=== PATIENT | female | born 1975 | race Caucasian/White ===

== ENCOUNTER 2018-02-09 11:45 | Observation (INO) ==
[2018-02-09] MEDS ORDERED: Aspirin 81 MG TAB.CHEW PO ONE (11:59)
--- NOTE | 2018-02-09 12:13 | Emergency Department Note ---
Disposition Clinical Impression: Chest pain Qualifiers: Chest pain type: precordial pain Qualified Code(s): R07.2 - Precordial pain Disposition: Admitted As Inpatient Condition: Good Time of Disposition: 14:11 General Adult HPI - General Stated complaint: Chest Pain Time Seen by Provider: 02/09/18 11:50 Source: patient, family Limitations: no limitations Nursing Notes Reviewed: Yes Vital Signs Reviewed: Yes - History of Present Illness HPI Narrative: Mrs. Keenan is a very pleasant's 42-year-old female with a past history of hypertension, hyperlipidemia, insulin-dependent diabetes, tobacco abuse and CAD who presents to the [facility] department with a chief complaint of sternal chest pain. She reports that she woke up this morning a proximal 4 AM complaining of nausea. She is as well as start experiencing sternal chest pain is nonradiating Anaprox was 6 AM. For his G decided to take a nitroglycerin that moderately improved her symptoms. She denies any emesis or radiation to her neck or left arm. She was on state that yesterday for approximately 2 hours she started experiencing profound diaphoresis at rest. Patient has significant cardiac history to include PCI back in 2011 resulting in one stent placed as well as 3 stents placed in 2017 for recurrent symptoms. She follows Dr. Gandhi here as an outpatient. Last known EF was back in 2017 of 55%. Today she reports the chest pain is similar to previous occurrences. On arrival she continues to complain of active chest pain without any shortness of breath, nausea, vomiting, diarrhea, diaphoresis palpitations or abdominal pain. No other complaints at this time. Pain Scale: 4 - Related Data Home Medications Medication Instructions Recorded Confirmed Atorvastatin [Lipitor] 40 mg PO HS 01/10/17 02/09/18 Carvedilol [Coreg] 25 mg PO BID 01/10/17 02/09/18 Clopidogrel [Plavix] 75 mg PO DAILY 01/10/17 02/09/18 Isosorbide MONOnitrate (24 HR) 120 mg PO DAILY 01/10/17 02/09/18 [Imdur] Nitroglycerin [Nitrostat] 0.4 mg SL Q5M PRN 01/10/17 02/09/18 glipiZIDE [Glipizide] 10 mg PO DAILY 01/10/17 02/09/18 Amitriptyline [Elavil] 25 mg PO HS 02/09/18 02/09/18 Citalopram [CeleXA] 20 mg PO DAILY 02/09/18 02/09/18 Furosemide [Lasix] 40 mg PO DAILY PRN 02/09/18 02/09/18 Insulin NPH Hum/Reg Insulin Hm 30 unit SQ BID 02/09/18 02/09/18 [Novolin 70-30 100 Unit/ml Vial] Lisinopril [Zestril] 10 mg PO DAILY 02/09/18 02/09/18 Allergies Allergy/AdvReac Type Severity Reaction Status Date / Time Sulfa (Sulfonamide Allergy Hives Verified 02/09/18 11:52 Antibiotics) Review of Systems: Constitutional: No fever Vision: No blurred vision ENT: No rhinorrhea Respiratory: No cough Allergic: No allergies : No blood in urine GI: No blood in stool Hematologic: No bruising Dermatologic: No skin rash Musculoskeletal: No pain in the extremities Neuro: No numbness of the extremities Past Medical History - Past Medical History Medical history: Reports: coronary artery disease, migraine, other Surgical history: Reports: non-contributory Psychiatric history: Reports: anxiety, depression 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 Oropharynx: pink/moist RESP: NRD without use of accessory musculature, CTA b/l with no wheezes/rales/ rhonchi CARD: Regular rhythm, without murmurs, rubs, or gallop CHEST: No reproducible chest wall tenderness ABD: grossly normal, soft, non-tender, no guarding/distention/rigidity SKIN: normal appearance, no pallor/diaphoresis,mottling,jaundice,cyanosis EXT: DP/Rad pulses 2+ and symmetrical; no lateralizing edema; no other lesions seen PSYCH: appropriate mood/affect - General Limitations: no limitations General appearance: alert, in no apparent distress Course Course Narrative: Patient was seen and examined at bedside. Vital signs reviewed and normal. Physical examination is otherwise benign at this time. We will begin workup for possible ACS with CBC, chemistries, troponin, BNP, 12-lead EKG, chest x-ray , coags. 325 aspirin was given as well as sublingual nitroglycerin as needed. Disposition pending at this time. 1258: Initial workup with CBC, chemistries, troponin and BNP were all within normal limits except for mild leukocytosis of 12. Chest x-ray shows no acute process. Patient has a heart score of 4 and given her significant cardiac history along with her presenting symptoms, I would recommend observation admission for further workup and management. Heparin drip was started. Patient has no signs of active bleeding at this time. Disposition was discussed with patient who understands and agrees to plan. 1338: Reexamination of patient demonstrates resolution of pain after 2 sublingual nitroglycerin. Patient was able to ambulate to the bathroom and back without any new chest pain, palpations, short of breath, diaphoresis, nausea, vomiting. Pending hospitalist call back for admission. 0400: Spoke with hospitalist, Dr. Loyola, who will accept patient for admission. No further recommendations per hospital team. Disposition was discussed with patient who understands and agrees to plan. Vital Signs Temperature 98.0 F 02/09/18 11:52 Pulse Rate 71 02/09/18 11:52 Respiratory Rate 16 02/09/18 11:52 Blood Pressure 139/91 02/09/18 11:52 O2 Sat by Pulse Oximetry 97 02/09/18 11:52 Temperature 98.0 F 02/09/18 11:52 Pulse Rate 64 02/09/18 14:39 Respiratory Rate 16 02/09/18 14:39 Blood Pressure 114/49 02/09/18 14:39 O2 Sat by Pulse Oximetry 95 02/09/18 14:39 Oxygen Delivery Oxygen Delivery Room Air Medical Decision Making - Medical Records Medical records reviewed: Yes I reviewed the patient's medical records. - Lab Data Result diagrams: 02/09/18 12:09 02/09/18 12:09 Lab Results 02/09/18 02/09/18 02/09/18 Range/Units 11:59 11:59 12:09 WBC 12.5 H (4.3-11.1) K/mcL RBC 6.02 H (3.82-4.97) M/mcL Hgb 16.7 H (11.5-15.4) g/dL Hct 49.6 H (35.3-44.9) % MCV 82.4 L (83.0-100.0) fL MCH 27.7 L (28.0-33.3) pg MCHC 33.7 (31.6-35.5) g/dL RDW 13.7 (11.5-14.5) % Plt Count 288 (140-400) K/mcL MPV 10.1 (9.4-12.4) fL Immature Gran % 0.7 (0-4) % Seg Neutrophils % 60.4 % Lymphocytes % 29.1 % Monocytes % 7.6 % Eosinophils % 1.7 % Basophils % 0.5 % Neutrophils # 7.6 (1.6-8.9) K/mcL Lymphocytes # 3.6 (0.6-4.6) K/mcL Monocytes # 1.0 (0.0-1.3) K/mcL Eosinophils # 0.2 (0.0-0.6) K/mcL Basophils # 0.1 (0.0-0.2) K/mcL Immature Plt Fraction 2.3 (1.1-6.1) % PT 10.7 (9.4-12.1) Seconds INR 1.0 APTT 31.2 (26.0-36.0) Seconds Sodium (136-145) mEq/L Potassium (3.5-5.1) mEq/L Chloride (98-107) mEq/L Carbon Dioxide (23-29) mEq/L BUN (6-20) mg/dL Creatinine (0.60-1.20) mg/dL Est GFR ( Amer) (> 60) Est GFR (Non-Af Amer) (> 60) BUN/Creatinine Ratio (6-26) Glucose (70-105) mg/dL Calculated Osmolality (280-300) Calcium (8.6-10.3) mg/dL Troponin I (< 0.04) ng/mL B-Natriuretic Peptide 55 (Less than 100) pg/mL 02/09/18 Range/Units 12:09 WBC (4.3-11.1) K/mcL RBC (3.82-4.97) M/mcL Hgb (11.5-15.4) g/dL Hct (35.3-44.9) % MCV (83.0-100.0) fL MCH (28.0-33.3) pg MCHC (31.6-35.5) g/dL RDW (11.5-14.5) % Plt Count (140-400) K/mcL MPV (9.4-12.4) fL Immature Gran % (0-4) % Seg Neutrophils % % Lymphocytes % % Monocytes % % Eosinophils % % Basophils % % Neutrophils # (1.6-8.9) K/mcL Lymphocytes # (0.6-4.6) K/mcL Monocytes # (0.0-1.3) K/mcL Eosinophils # (0.0-0.6) K/mcL Basophils # (0.0-0.2) K/mcL Immature Plt Fraction (1.1-6.1) % PT (9.4-12.1) Seconds INR APTT (26.0-36.0) Seconds Sodium 135 L (136-145) mEq/L Potassium 4.2 (3.5-5.1) mEq/L Chloride 104 (98-107) mEq/L Carbon Dioxide 24 (23-29) mEq/L BUN 11 (6-20) mg/dL Creatinine 0.63 (0.60-1.20) mg/dL Est GFR ( Amer) > 60 (> 60) Est GFR (Non-Af Amer) > 60 (> 60) BUN/Creatinine Ratio 17 (6-26) Glucose 242 H (70-105) mg/dL Calculated Osmolality 287 (280-300) Calcium 9.7 (8.6-10.3) mg/dL Troponin I < 0.03 (< 0.04) ng/mL B-Natriuretic Peptide (Less than 100) pg/mL - EKG Data EKG #1 EKG results narrative: 02/09/18 1154: Heart rate 70, P-R 117, QRS 110, QTC 413. Rhythm consistent with normal sinus rhythm without any new ST elevation or any other ischemic changes. EKG was compared to previous that was performed on 04/27/17. Attestation Statement - Attestation Attestation: I, Shyam Cordero DO, examined this patient [id number] and my medical decision-making was reviewed with Ankur Bassett PGY-1, Resident Physician. I agree with the documented findings, disposition and treatment plan as described except to the extent set forth below. Please see my progress notes for details.
[2018-02-09 12:14] LABS: Basophils # 0.1 K/mcL (0.0-0.2); Basophils % 0.5 %; Eosinophils # 0.2 K/mcL (0.0-0.6); Eosinophils % 1.7 %; Hematocrit 49.6 % (35.3-44.9); Hemoglobin 16.7 g/dL (11.5-15.4); Immature Granulocytes % 0.7 % (0-4); Immature Platelets 2.3 % (1.1-6.1); Lymphocytes # 3.6 K/mcL (0.6-4.6); Lymphocytes % 29.1 %; Mean Corpuscular HGB Conc 33.7 g/dL (31.6-35.5); Mean Corpuscular Hemoglobin 27.7 pg (28.0-33.3); Mean Corpuscular Volume 82.4 fL (83.0-100.0); Mean Platelet Volume 10.1 fL (9.4-12.4); Monocytes % 7.6 %; Neutrophils # 7.6 K/mcL (1.6-8.9); Platelet Count 288 K/mcL (140-400); Red Blood Count 6.02 M/mcL (3.82-4.97); Red Cell Distribution Width 13.7 % (11.5-14.5); Segmented Neutrophils % 60.4 %
[2018-02-09 12:16] LABS: Prothrombin Time 10.7 Seconds (9.4-12.1)
[2018-02-09 12:18] LABS: Activated Partial Thrombo Time 31.2 Seconds (26.0-36.0)
[2018-02-09 12:26] LABS: Troponin I < 0.03 ng/mL (< 0.04)
[2018-02-09 12:34] LABS: BUN/Creatinine Ratio 17 (6-26); Blood Urea Nitrogen 11 mg/dL (6-20); Calcium 9.7 mg/dL (8.6-10.3); Carbon Dioxide 24 mEq/L (23-29); Chloride 104 mEq/L (98-107); Glucose 242 mg/dL (70-105); Osmolality,Calculated 287 (280-300); Potassium 4.2 mEq/L (3.5-5.1); Sodium 135 mEq/L (136-145); eGFR For African Americans > 60 (> 60); eGFR For Non-African Americans > 60 (> 60)
[2018-02-09] MEDS: Nitroglycerin 0.4 MG TAB.SUBL SL PRN ×2 (12:50→12:56)
[2018-02-09] MEDS ORDERED: *HR* Heparin 5,000 UNIT/ML VIAL IVP PRN ×2 (12:52)
[2018-02-09] MEDS ORDERED: *HR* Heparin 5,000 UNIT/ML VIAL IVP ONE (12:52)
[2018-02-09] MEDS ORDERED: Heparin 25,000 UNIT/500 ML D5W 25,000 UNIT/500 ML BAG IVC SCH (13:00)
--- NOTE | 2018-02-09 13:35 | Emergency Department Note ---
Disposition Clinical Impression: Chest pain Disposition: Admitted As Inpatient Condition: Good Time of Disposition: 14:52 General Adult HPI - General Chief complaint: ED Chest Pain Stated complaint: Chest Pain Time Seen by Provider: 02/09/18 11:50 Source: patient, family Limitations: no limitations - History of Present Illness Pain Scale: 4 - Related Data Home Medications Medication Instructions Recorded Confirmed Atorvastatin [Lipitor] 40 mg PO HS 01/10/17 01/10/17 Carvedilol [Coreg] 25 mg PO BID 01/10/17 01/10/17 Clopidogrel [Plavix] 75 mg PO DAILY 01/10/17 01/10/17 Isosorbide MONOnitrate (24 HR) 120 mg PO DAILY 01/10/17 01/10/17 [Imdur] Nitroglycerin [Nitrostat] 0.4 mg SL Q5M PRN 01/10/17 01/10/17 glipiZIDE [Glipizide] 10 mg PO DAILY 01/10/17 01/10/17 Amitriptyline [Elavil] 25 mg PO HS 02/09/18 02/09/18 Citalopram [CeleXA] 20 mg PO DAILY 02/09/18 02/09/18 Furosemide [Lasix] 40 mg PO DAILY PRN 02/09/18 02/09/18 Insulin NPH Hum/Reg Insulin Hm 30 unit SQ BID 02/09/18 02/09/18 [Novolin 70-30 100 Unit/ml Vial] Lisinopril [Zestril] 10 mg PO DAILY 02/09/18 02/09/18 Allergies Allergy/AdvReac Type Severity Reaction Status Date / Time Sulfa (Sulfonamide Allergy Hives Verified 02/09/18 11:52 Antibiotics) Past Medical History - Past Medical History Medical history: Reports: coronary artery disease, migraine, other Surgical history: Reports: non-contributory Psychiatric history: Reports: anxiety, depression 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: polycystic ovary syndrome - Social History Smoking Status: Current some day smoker Smokeless Tobacco Status: No Alcohol use: Reports: none Drug use: Reports: none Physical Exam - General Limitations: no limitations General appearance: alert, in no apparent distress Course Vital Signs Temperature 98.0 F 02/09/18 11:52 Pulse Rate 71 02/09/18 11:52 Respiratory Rate 16 02/09/18 11:52 Blood Pressure 139/91 02/09/18 11:52 O2 Sat by Pulse Oximetry 97 02/09/18 11:52 Temperature 98.0 F 02/09/18 11:52 Pulse Rate 64 02/09/18 14:39 Respiratory Rate 16 02/09/18 14:39 Blood Pressure 114/49 02/09/18 14:39 O2 Sat by Pulse Oximetry 95 02/09/18 14:39 Oxygen Delivery Oxygen Delivery Room Air Medical Decision Making - Lab Data Result diagrams: 02/09/18 12:09 02/09/18 12:09 Lab Results 02/09/18 02/09/18 02/09/18 Range/Units 11:59 11:59 12:09 WBC 12.5 H (4.3-11.1) K/mcL RBC 6.02 H (3.82-4.97) M/mcL Hgb 16.7 H (11.5-15.4) g/dL Hct 49.6 H (35.3-44.9) % MCV 82.4 L (83.0-100.0) fL MCH 27.7 L (28.0-33.3) pg MCHC 33.7 (31.6-35.5) g/dL RDW 13.7 (11.5-14.5) % Plt Count 288 (140-400) K/mcL MPV 10.1 (9.4-12.4) fL Immature Gran % 0.7 (0-4) % Seg Neutrophils % 60.4 % Lymphocytes % 29.1 % Monocytes % 7.6 % Eosinophils % 1.7 % Basophils % 0.5 % Neutrophils # 7.6 (1.6-8.9) K/mcL Lymphocytes # 3.6 (0.6-4.6) K/mcL Monocytes # 1.0 (0.0-1.3) K/mcL Eosinophils # 0.2 (0.0-0.6) K/mcL Basophils # 0.1 (0.0-0.2) K/mcL Immature Plt Fraction 2.3 (1.1-6.1) % PT 10.7 (9.4-12.1) Seconds INR 1.0 APTT 31.2 (26.0-36.0) Seconds Sodium (136-145) mEq/L Potassium (3.5-5.1) mEq/L Chloride (98-107) mEq/L Carbon Dioxide (23-29) mEq/L BUN (6-20) mg/dL Creatinine (0.60-1.20) mg/dL Est GFR ( Amer) (> 60) Est GFR (Non-Af Amer) (> 60) BUN/Creatinine Ratio (6-26) Glucose (70-105) mg/dL Calculated Osmolality (280-300) Calcium (8.6-10.3) mg/dL Troponin I (< 0.04) ng/mL B-Natriuretic Peptide 55 (Less than 100) pg/mL 02/09/18 Range/Units 12:09 WBC (4.3-11.1) K/mcL RBC (3.82-4.97) M/mcL Hgb (11.5-15.4) g/dL Hct (35.3-44.9) % MCV (83.0-100.0) fL MCH (28.0-33.3) pg MCHC (31.6-35.5) g/dL RDW (11.5-14.5) % Plt Count (140-400) K/mcL MPV (9.4-12.4) fL Immature Gran % (0-4) % Seg Neutrophils % % Lymphocytes % % Monocytes % % Eosinophils % % Basophils % % Neutrophils # (1.6-8.9) K/mcL Lymphocytes # (0.6-4.6) K/mcL Monocytes # (0.0-1.3) K/mcL Eosinophils # (0.0-0.6) K/mcL Basophils # (0.0-0.2) K/mcL Immature Plt Fraction (1.1-6.1) % PT (9.4-12.1) Seconds INR APTT (26.0-36.0) Seconds Sodium 135 L (136-145) mEq/L Potassium 4.2 (3.5-5.1) mEq/L Chloride 104 (98-107) mEq/L Carbon Dioxide 24 (23-29) mEq/L BUN 11 (6-20) mg/dL Creatinine 0.63 (0.60-1.20) mg/dL Est GFR ( Amer) > 60 (> 60) Est GFR (Non-Af Amer) > 60 (> 60) BUN/Creatinine Ratio 17 (6-26) Glucose 242 H (70-105) mg/dL Calculated Osmolality 287 (280-300) Calcium 9.7 (8.6-10.3) mg/dL Troponin I < 0.03 (< 0.04) ng/mL B-Natriuretic Peptide (Less than 100) pg/mL Critical Care Time Critical Care Time: Yes Total Critical Care Time: 35 Attestation: Critical care performed: Time is exclusive of separately billable procedures. Time includes: direct patient care, patient reassessment, coordination of patient care, interpretation of data (laboratory data, radiology data, and respiratory data), review of patient's medical records, medical consultation and documentation of patient care. Procedures included in critical care time: Procedures excluded from critical care time: Attestation Statement - Attestation Attestation: I, Shyam Cordero DO, examined this patient [id number] and my medical decision-making was reviewed withTeetee Bassett PGY-1 Resident Physician. I agree with the documented findings, disposition and treatment plan as described except to the extent set forth below. Please see my progress notes for details. 42-year-old female presents to the emergency room with several different complaints. Yesterday afternoon she had some sweating and diaphoresis while at [employer]. She went home without any problem but then started has some nausea vomiting that woke her from sleep at night. When she woke up this morning with chest tightness and pressure. Patient does have a history of stenting vascular related issues that required catheterization [facility] a [facility]. Patient has not had any new medications or symptoms provided. She is on isosorbide at home. She did take one nitroglycerin at home that pain did almost complete resolved. Patient is otherwise comfortable this point she understands this is most likely acute coronary syndrome considering the symptoms are identical to when she had her heart related issues just over 2 years ago. Patient is clinically stable at this point. She denies any hematochezia or melena. Denies any vaginal bleeding. Denies any hemoptysis. She has a normal hemoglobin CBC as well as chemistry correlation studies and urinalysis. She does not have any other complaints at this point. Patient will most likely be admitted to the hospital for unstable angina considering she does have symptoms and is comfortable resting. Patient does have concerning history warranting further workup and management. See detailed documentation of the physical exam , medical intervention, medical decision-making and disposition in the resident physician's note. Heparin drip will be started if appropriate. 35 minutes of critical care provider this patient's treatment course at this time. 1400 Patient has had complete resolution of her chest tightness and pain at this time. She ambulated to the bathroom without any difficulty. Patient had no repeat or reemergence of the symptoms. Heparin drip was ordered here. Patient is otherwise currently stable. She denies any bleeding or issue at this point. Patient will be admitted for acute coronary syndrome rule out
[2018-02-09] MEDS ORDERED: Furosemide 40 MG TABLET PO PRN (15:14)
[2018-02-09] MEDS ORDERED: Nitroglycerin 0.4 MG TAB.SUBL SL PRN (15:14)
[2018-02-09] MEDS ORDERED: Naloxone 0.4 MG/ML INJ IVP PRN (15:16)
--- NOTE | 2018-02-09 15:25 | Internal Med History&Physical ---
Date of Encounter: 02/09/18 Time of Encounter: 15:20 Internal Medicine - H&P: HPI Chief complaint: chest pain Admitted From: Emergency Dept Plans for Post Hospital Care: Home History of present illness: Ms. Keenan is a 42 year old female who is a background history of diabetes, hypertension, dyslipidemia, severe coronary artery disease,. Patient came to emergency room for persistent nonradiating and localized precordial left-sided chest pain. Patient claims that the chest pain is pretty severe and this is exactly mimicking when she had a NE 3 years back. Patient has ongoing chest pain in the emergency room till she was started on intravenous medication. Patient claims that since he is on the floor she is chest pain-free. Patient denies shortness of breath, nausea, vomiting, dizziness, diarrhea Workup in the emergency room: Patient was evaluated in the emergency room. Basic labs were drawn. First troponin negative. Patient was started on heparin. Reason for admission: Heart score 5, patient is on intravenous heparin and needs to be observed in the hospital. Evaluation by cardiology for possible further intervention. Family history: Noncontributory Past Med Surg Social Fam HX - Past Medical History Medical history: coronary artery disease, migraine, other Psychiatric history: anxiety, depression - Past Surgical History Surgical History: non-contributory - Social History Smoking Status: Current some day smoker Smokeless Tobacco Status: No Alcohol use: none Drug use: none Internal Medicine - H&P: Meds Atorvastatin [Lipitor] 40 mg PO HS 01/10/17 [History] Carvedilol [Coreg] 25 mg PO BID 01/10/17 [History] Clopidogrel [Plavix] 75 mg PO DAILY 01/10/17 [History] Isosorbide MONOnitrate (24 HR) [Imdur] 120 mg PO DAILY 01/10/17 [History] Nitroglycerin [Nitrostat] 0.4 mg SL Q5M PRN 01/10/17 [History] glipiZIDE [Glipizide] 10 mg PO DAILY 01/10/17 [History] Amitriptyline [Elavil] 25 mg PO HS 02/09/18 [History] Citalopram [CeleXA] 20 mg PO DAILY 02/09/18 [History] Furosemide [Lasix] 40 mg PO DAILY PRN 02/09/18 [History] Insulin NPH Hum/Reg Insulin Hm [Novolin 70-30 100 Unit/ml Vial] 30 unit SQ BID 02/09/18 [History] Lisinopril [Zestril] 10 mg PO DAILY 02/09/18 [History] 3 Allergy/AdvReac Type Severity Reaction Status Date / Time Sulfa (Sulfonamide Allergy Hives Verified 02/09/18 11:52 Antibiotics) All Systems PM: A 10-system review of systems was performed and is negative for pertinent findings except as documented above in the HPI. - Constitutional Constitutional: no chills, no fever(s), no night sweats - EENT Eyes: no change in vision, no discharge, no pain, no photophobia Ears: no ear discharge, no ear pain, no tinnitus Nose, mouth and throat: no dysphagia, no nasal discharge, no neck pain, no sore throat - Cardiovascular Cardiovascular ROS IM: chest pain, no diaphoresis, no dyspnea, no lightheadedness, no palpitations, no syncope - Respiratory Respiratory: no cough, no dyspnea, no wheezing, no excessive phlegm production - Gastrointestinal Gastrointestinal: no abdominal pain, no diarrhea, no hematemesis, no hematochezia, no melena, no nausea, no vomiting - Genitourinary Genitourinary: no change in urinary stream, no dysuria, no flank pain, no hematuria - Musculoskeletal Musculoskeletal ROS IM: no numbness, no tingling - Integumentary Integumentary IM: no rash, no unusual bruising - Neurological Neurological ROS: no confusion, no convulsions, no focal weakness, no numbness, no tingling, no tremor(s) - Hematologic/Lymphatic Hematologic/Lymphatic: no easy bruising - Constitutional Vitals: Temp Pulse Resp BP Pulse Ox 98.0 F 64 16 114/49 95 02/09/18 11:52 02/09/18 14:39 02/09/18 14:39 02/09/18 14:39 02/09/18 14:39 General appearance: Present: A&O X 3, pleasant, no acute distress, answers questions appropriately - Head Head exam: Present: atraumatic, normocephalic - Eye Eye exam: Present: PERRL, conjuntiva pink, sclera anicteric Pupils: Present: PERRL - Neck Neck exam general surgery: Present: supple, trachea midline. Absent: lymphadenopathy - Respiratory Respiratory exam: Present: CTAB. Absent: accessory muscle use, rales, rhonchi, wheezes - Cardiovascular Cardiovascular exam: Present: RRR, +S1, +S2. Absent: diastolic murmur, gallop, rubs, systolic murmur - GI/Abdominal GI/Abdominal exam: Present: normal bowel sounds, soft, no peritoneal signs. Absent: distended, tenderness - Extremities Exam Extremities exam: Present: warm, radial pulses palpable and symmetrical. Absent : calf tenderness, cyanotic, pedal edema - Neurological Exam Neurological exam: Present: CN II-XII intact, oriented X3, no focal deficits. Absent: pronater drift, facial droop, speech deficit - Skin Skin exam: Present: dry, intact Internal Med - H&P Results - Labs CBC & Chem 7: 02/09/18 12:09 02/09/18 12:09 - Assessment and plan (1) Chest pain Current Visit: Yes Status: Acute Assessment and plan: 43/mL Severe significant coronary artery disease. Admitted with chest pain. CARLOS A:4 Plan: Admit as observation. Cardiac/diabetic diet. On heparin drip. Cycle troponin. Basic labs tomorrow. ASA/statin/beta blockers/lisinopril/ISDN SL Nitro At this point we will not consider any imaging tests. I examined this patient in 3B63 along with ALAN Robert. Plan of care discussed with the patient. Patient verbalized understanding. Qualifiers: Chest pain type: precordial pain Qualified Code(s): R07.2 - Precordial pain (2) Coronary artery disease Current Visit: Yes Status: Acute Assessment and plan: Patient has significant coronary artery disease. EKG: Nonspecific ST-T changes. Echocardiogram: 06/2017: EF: 60-65%, normal LV chamber size, no abnormal valvular motion. Nuclear stress test: 12/2016: Low-level exercise pharmacologic stress EKG negative for ischemia Cardiac catheter: 03/2017: Patient had a cardiac catheterization in this hospital as well as in the [facility]. We will get records from the [facility]. Cardiology consult placed and discussed case with Qualifiers: Coronary Disease-Associated Artery/Lesion type: [place] artery [place] vs. transplanted heart: [place] heart Associated angina: with stable angina Qualified Code(s): I25.118 - Atherosclerotic heart disease of [place] coronary artery with other forms of angina pectoris (3) Diabetes mellitus Current Visit: Yes Status: Acute Assessment and plan: Patient is known to have a diabetes mellitus. Patient is on Septra DS insulin at home. We will resume the insulin from home dose. We will follow the orders from the subcutaneous insulin order set. 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 Patient is an couple of antihypertensive medication. We will resume home medications. Close monitoring of the blood pressure. Qualifiers: Hypertension type: essential hypertension Qualified Code(s): I10 - Essential (primary) hypertension (5) Dyslipidemia Current Visit: Yes Status: Acute Assessment and plan: Patient has elevated LDL. patient is on statin. We will continue same for now. We will repeat lipid panel tomorrow morning. (6) DVT prophylaxis Current Visit: Yes Status: Acute Assessment and plan: Heparin drip Medical decision making: This patient has a moderate to severe risk of worsening in spite of being on appropriate medication due to the underlying complex comorbid conditions. - Time Spent With Patient Total time spent is greater than 50% in coordination of care (as documented) at patient's floor/unit and/or counseling patient:
[2018-02-09] MEDS: Isosorbide MONOnitrate (24 HR) 60 MG TAB.ER.24H PO SCH (17:03)
[2018-02-09] MEDS: Insulin NPH/REG 70/30 100 UNIT/ML (x5UNIT) SQ SCH (20:42)
[2018-02-10 03:44] LABS: Basophils # 0.1 K/mcL (0.0-0.2); Basophils % 0.5 %; Eosinophils # 0.2 K/mcL (0.0-0.6); Hematocrit 42.5 % (35.3-44.9); Hemoglobin 14.1 g/dL (11.5-15.4); Immature Granulocytes % 0.8 % (0-4); Lymphocytes # 3.6 K/mcL (0.6-4.6); Lymphocytes % 35.7 %; Mean Corpuscular HGB Conc 33.2 g/dL (31.6-35.5); Mean Corpuscular Hemoglobin 27.5 pg (28.0-33.3); Mean Corpuscular Volume 82.8 fL (83.0-100.0); Mean Platelet Volume 10.1 fL (9.4-12.4); Monocytes # 0.8 K/mcL (0.0-1.3); Monocytes % 7.8 %; Neutrophils # 5.4 K/mcL (1.6-8.9); Platelet Count 230 K/mcL (140-400); Red Blood Count 5.13 M/mcL (3.82-4.97); Red Cell Distribution Width 13.6 % (11.5-14.5); Segmented Neutrophils % 53.2 %
[2018-02-10 03:54] LABS: Activated Partial Thrombo Time 68.6 Seconds (26.0-36.0)
[2018-02-10 04:06] LABS: Alanine Aminotransferase 10 Units/L (7-52); Albumin 3.2 g/dL (3.5-5.7); Albumin/Globulin Ratio 1.3 (1.1-2.2); Alkaline Phosphatase 84 Units/L (34-104); Aspartate Amino Transferase 11 Units/L (13-39); BUN/Creatinine Ratio 23 (6-26); Bilirubin,Total 0.4 mg/dL (0.3-1.0); Blood Urea Nitrogen 12 mg/dL (6-20); Calcium 8.7 mg/dL (8.6-10.3); Carbon Dioxide 24 mEq/L (23-29); Chloride 108 mEq/L (98-107); Cholesterol 167 mg/dL (< 200); Globulin 2.5 g/dL (2.4-3.5); Glucose 112 mg/dL (70-105); HDL Cholesterol 21 mg/dL (40-59); LDL Cholesterol,Calculated 108 mg/dL (0-99); Magnesium 1.8 mg/dL (1.6-2.6); Osmolality,Calculated 285 (280-300); Phosphorous 4.2 mg/dL (2.7-4.5); Potassium 3.9 mEq/L (3.5-5.1); Sodium 137 mEq/L (136-145); Total Protein 5.7 g/dL (6.4-8.9); Triglycerides 191 mg/dL (< 150); eGFR For African Americans > 60 (> 60); eGFR For Non-African Americans > 60 (> 60)
--- NOTE | 2018-02-10 09:13 | Electrocardiograph Report ---
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
--- NOTE | 2018-02-10 10:04 | Cardiology Consult Note ---
<Navin Deleon - Last Filed: 02/10/18 11:30> Date of Encounter: 02/10/18 Time of Encounter: 09:25 Assessment and Plan (1) Atypical chest pain Status: Acute Central chest pressure with nausea. No exertional component. No longer having CP now. Symptoms inconsistent with prior angina. Troponin negative x4. No acute ischemic EKG changes No compelling evidence for ACS: - Consider out-patient evaluation for possible stress evaluation - Stop heparin drip TTE pending - final recommendations pending results Continue medical management Anticipate cardiology sign-off Discussed case with Dr. See - final recommendations pending her evaluation (2) Coronary artery disease Status: Acute Complex CAD s/p PCI - 3 IVETTE to LAD in 2017 and one stent to OM2 in 2011. COMPUTER NETWORK SUPPORT SPECIALIST of RCA with good collateral flow. TTE pending. If no changes from previous TTE, likely no further in-patient cardiac imaging. Continue ASA, Plavix, BB, ACEI, and Imdur Qualifiers: Coronary Disease-Associated Artery/Lesion type: [place] artery [place] vs. transplanted heart: [place] heart Associated angina: with stable angina Qualified Code(s): I25.118 - Atherosclerotic heart disease of [place] coronary artery with other forms of angina pectoris (3) Hypertension Status: Acute Normotensive. Continue home medications Qualifiers: Hypertension type: essential hypertension Qualified Code(s): I10 - Essential (primary) hypertension (4) Hyperlipidemia Status: Acute Continue statin Qualifiers: Hyperlipidemia type: unspecified Qualified Code(s): E78.5 - Hyperlipidemia , unspecified (5) Tobacco use Status: Acute Previously had quit smoking, but started again due to stressors at work. Pt aware of dangers and risks associated with smoking. Counseling provided and encouraged smoking cessation (6) Diabetes mellitus Status: Acute Management per primary team Qualifiers: Diabetes mellitus type: type 2 Diabetes mellitus fpc insulin use: with fpc use Diabetes mellitus complication status: with unspecified complications Qualified Code(s): E11.8 - Type 2 diabetes mellitus with unspecified complications; Z79.4 - nursing home (current) use of insulin; Z79.4 - nursing home (current) use of insulin; Z79.4 - remote computer terminal operator (current) use of insulin; Z79.4 - remote computer terminal operator (current) use of insulin Discussion w patient/family: The assessment and plan as outlined above was discussed with the patient and/or family members who expressed understanding and agreement. All questions were answered. Thank you for involving us in the care of your patient. Please call with any questions. History of Present Illness Consult date: 02/09/18 Requesting physician: Ton Condon Consult reason: Chest pain with severe CAD history Chief complaint: Chest Pain History of present illness: Ms. Keenan is a 42 year old female with PMH of CAD s/p IVETTE to LAD (2016) and OM (2011), HTN, HLD, DM, and tobacco use, presented to the ED with central chest pressure. Initially she reports having diaphoresis two days ago, and then had non-radiating chest pressure/squeezing one day ago. Pain began while she was getting ready for work. Nitro helped relieve the pain for about 30 minutes. Associated symptoms include nausea. Denies worsening with exertion. Denies further diaphoresis, light-headedness, radiating pain, dyspnea, orthopnea, vomiting, or LE edema. She received nitro x2 in the ED and has not had any chest pain since. She was able to ambulate to the bathroom without symptoms. She states that this pain shares some similarities with her chest pain in the past, but is less intense and non-radiating now. In December of 2016 she was wound to have COMPUTER NETWORK SUPPORT SPECIALIST of LAD and prox/mid RCA. PCI to LAD at [facility] in March of 2017. No PCI to RCA due to good collateral blood flow. Cardiac Imaging: - TTE 07/04/17: LVEF 60-65%, normal LV size and function, mild diastolic dysfunction, normal RV structure and function - [facility] 01/10/17: triple vessel disease, COMPUTER NETWORK SUPPORT SPECIALIST to mid LAD and prox/mid RCA, previous stent to OM2, EF 55% Past Med Surg Social Fam HX - Past Medical History Medical history: coronary artery disease, migraine, other Psychiatric history: anxiety, depression - Past Surgical History Surgical History: angioplasty/stent, cholecystectomy - Social History Smoking Status: Current some day smoker Smokeless Tobacco Status: No Alcohol use: none Drug use: none Medications and Allergies Atorvastatin [Lipitor] 40 mg PO HS 01/10/17 [History] Carvedilol [Coreg] 25 mg PO BID 01/10/17 [History] Clopidogrel [Plavix] 75 mg PO DAILY 01/10/17 [History] Isosorbide MONOnitrate (24 HR) [Imdur] 120 mg PO DAILY 01/10/17 [History] Nitroglycerin [Nitrostat] 0.4 mg SL Q5M PRN 01/10/17 [History] glipiZIDE [Glipizide] 10 mg PO DAILY 01/10/17 [History] Amitriptyline [Elavil] 25 mg PO HS 02/09/18 [History] Citalopram [CeleXA] 20 mg PO DAILY 02/09/18 [History] Furosemide [Lasix] 40 mg PO DAILY PRN 02/09/18 [History] Insulin NPH Hum/Reg Insulin Hm [Novolin 70-30 100 Unit/ml Vial] 30 unit SQ BID 02/09/18 [History] Lisinopril [Zestril] 10 mg PO DAILY 02/09/18 [History] 3 Allergy/AdvReac Type Severity Reaction Status Date / Time Sulfa (Sulfonamide Allergy Hives Verified 02/09/18 11:52 Antibiotics) All Systems Review: The remainder of the systems were reviewed and are negative Physical Examination Vital Signs, Last 4 Hours Temp Pulse Resp BP Pulse Ox 02/10/18 07:12 97.9 F 59 15 115/76 95 General: Conversant, No Apparent Distress HEENT: Atraumatic, Normocephaly, Mucus Membranes Moist Neck: No JVD, Normal carotid pulses Cardiac: Reg Rate and Rhythm, Normal S1 and S2, No Murmur Lungs: Normal Breath Sounds, No Wheeze, Rales, Rhonchi Neuro: Alert and responsive, No focal deficits noted Abdomen: Soft, Non-Tender Skin: No rashes noted on visualized skin Musculoskeletal: No Chest Wall Tenderness Extremities: No Clubbing, No Cyanosis, No Edema, Normal Pulses Results 02/10/18 03:29 02/10/18 03:29 Lab Results 02/09/18 02/09/18 02/09/18 18:10 19:22 21:39 WBC Hgb Hct Plt Count INR APTT 42.6 H Sodium Potassium Chloride Carbon Dioxide BUN Creatinine Glucose Calcium Magnesium Total Bilirubin AST ALT Alkaline Phosphatase Troponin I < 0.03 < 0.03 B-Natriuretic Peptide 02/10/18 02/10/18 02/10/18 03:29 03:29 03:29 WBC 10.2 Hgb 14.1 D Hct 42.5 Plt Count 230 INR 1.0 APTT 68.6 H D Sodium Potassium Chloride Carbon Dioxide BUN Creatinine Glucose Calcium Magnesium Total Bilirubin AST ALT Alkaline Phosphatase Troponin I < 0.03 B-Natriuretic Peptide 02/10/18 02/10/18 03:29 03:29 WBC Hgb Hct Plt Count INR APTT Sodium 137 Potassium 3.9 Chloride 108 H Carbon Dioxide 24 BUN 12 Creatinine 0.52 L Glucose 112 H Calcium 8.7 Magnesium 1.8 Total Bilirubin 0.4 AST 11 L ALT 10 Alkaline Phosphatase 84 Troponin I B-Natriuretic Peptide 23 - EKG Interpretation EKG results cardiology: personally reviewed (NSR, HR 70. Left axis deviation. Normal intervals. No ST elevation/depression or T wave changes) Consult Discharge Plan - Plan Instructions: Chest Pain (DC), Diabetes Mellitus Type 2 in Adults (DC), Chronic Hypertension (DC) Referrals: Heri Harrison MD [Primary Care Provider] - 02/17/18 1:15 pm <Raysa See - Last Filed: 02/10/18 15:44> Date of Encounter: 02/10/18 - Attending Attestation I examined this patient and my medical decision-making was reviewed with the Resident Physician. I agree with the documented findings, disposition and treatment plan. Ms. Keenan presents with atypical chest pain. She has been chest pain free since admission. Troponin negative x 4. No new ischemic ECG changes. No compelling evidence to support ACS. Recommend starting PPI and outpatient Cardiology follow up. If symptoms persist can consider outpatient ischemic evaluation. Patient agrees with the plan. Continue DAPT, statin, BB. Assessment and Plan Discussion w patient/family: The assessment and plan as outlined above was discussed with the patient and/or family members who expressed understanding and agreement. All questions were answered. Thank you for involving us in the care of your patient. Please call with any questions. History of Present Illness History of present illness: Ms. Keenan is a 42 year old female All Systems Review: The remainder of the systems were reviewed and are negative Results 02/10/18 03:29 02/10/18 03:29 Lab Results 02/09/18 02/09/18 02/09/18 18:10 19:22 21:39 WBC Hgb Hct Plt Count INR APTT 42.6 H Sodium Potassium Chloride Carbon Dioxide BUN Creatinine Glucose Calcium Magnesium Total Bilirubin AST ALT Alkaline Phosphatase Troponin I < 0.03 < 0.03 B-Natriuretic Peptide 02/10/18 02/10/18 02/10/18 03:29 03:29 03:29 WBC 10.2 Hgb 14.1 D Hct 42.5 Plt Count 230 INR 1.0 APTT 68.6 H D Sodium Potassium Chloride Carbon Dioxide BUN Creatinine Glucose Calcium Magnesium Total Bilirubin AST ALT Alkaline Phosphatase Troponin I < 0.03 B-Natriuretic Peptide 02/10/18 02/10/18 02/10/18 03:29 03:29 09:34 WBC Hgb Hct Plt Count INR APTT 64.1 H Sodium 137 Potassium 3.9 Chloride 108 H Carbon Dioxide 24 BUN 12 Creatinine 0.52 L Glucose 112 H Calcium 8.7 Magnesium 1.8 Total Bilirubin 0.4 AST 11 L ALT 10 Alkaline Phosphatase 84 Troponin I B-Natriuretic Peptide 23
[2018-02-10 10:19] LABS: C-Reactive Protein 10 mg/L (Less than 10)
[2018-02-10 11:14] VITALS: BP 124/81
[2018-02-10] MEDS: Insulin NPH/REG 70/30 100 UNIT/ML (x5UNIT) SQ SCH (11:58)
[2018-02-10] MEDS: Isosorbide MONOnitrate (24 HR) 60 MG TAB.ER.24H PO SCH (12:12)
--- NOTE | 2018-02-10 14:02 | Discharge Summary ---
- NOTES TO OUTPATIENT PROVIDER Notes to Outpatient Provider: f/u with PCP within a week. F/U with cardiology within a week. Orders not resulted at time of discharge: Pending orders 02/10/18 10:02 EV echocardiogram Routine Date of Encounter: 02/10/18 Time of Encounter: 13:59 - Discharge Diagnosis (1) Chest pain Priority: Primary Status: Acute Qualifiers: Chest pain type: precordial pain Qualified Code(s): R07.2 - Precordial pain (2) Diabetes mellitus Priority: Secondary Status: Chronic Qualifiers: Diabetes mellitus type: type 2 Diabetes mellitus terminologist insulin use: with terminologist use Diabetes mellitus complication status: with unspecified complications Qualified Code(s): E11.8 - Type 2 diabetes mellitus with unspecified complications; Z79.4 - residential (current) use of insulin; Z79.4 - residential (current) use of insulin; Z79.4 - residential (current) use of insulin; Z79.4 - residential (current) use of insulin (3) Hypertension Priority: Secondary Status: Chronic Qualifiers: Hypertension type: essential hypertension Qualified Code(s): I10 - Essential (primary) hypertension (4) Coronary artery disease Priority: Secondary Status: Chronic Qualifiers: Coronary Disease-Associated Artery/Lesion type: [place] artery [place] vs. transplanted heart: [place] heart Associated angina: with stable angina Qualified Code(s): I25.118 - Atherosclerotic heart disease of [place] coronary artery with other forms of angina pectoris (5) Dyslipidemia Priority: Secondary Status: Chronic (6) DVT prophylaxis Priority: Primary Status: Acute Hospital course: Ms. Keenan is a 42 year old female with past medical history of CAD, hypertension, diabetes, and the hyperlipidemia presented with left substernal chest pain. Per patient report, she had a heart attack and had 3 stents placed about 3 years ago. She describes the chest pain was similar to the previous angina. She was admitted as observation for further workup. EKG revealed in no acute ST-T change. Serial troponin was negative. Cardiology was consulted and advised that the patient chest pain was likely not cardiac related, recommended outpatient follow-up for ischemic workup. Patient will be discharged today. She was instructed to follow up with cardiology and the PCP within a week. Discharge discussed with: patient, family Time spent discussing smoking cessation with patient: 3 to 10 minutes - Time Spent with Patient Total time spent providing and/or coordinating discharge services: Greater than 30 minutes - Discharge Medications Home Medications: Atorvastatin [Lipitor] 40 mg PO HS 01/10/17 [History] Carvedilol [Coreg] 25 mg PO BID 01/10/17 [History] Clopidogrel [Plavix] 75 mg PO DAILY 01/10/17 [History] Isosorbide MONOnitrate (24 HR) [Imdur] 120 mg PO DAILY 01/10/17 [History] Nitroglycerin [Nitrostat] 0.4 mg SL Q5M PRN 01/10/17 [History] glipiZIDE [Glipizide] 10 mg PO DAILY 01/10/17 [History] Amitriptyline [Elavil] 25 mg PO HS 02/09/18 [History] Citalopram [CeleXA] 20 mg PO DAILY 02/09/18 [History] Furosemide [Lasix] 40 mg PO DAILY PRN 02/09/18 [History] Insulin NPH Hum/Reg Insulin Hm [Novolin 70-30 100 Unit/ml Vial] 30 unit SQ BID 02/09/18 [History] Lisinopril [Zestril] 10 mg PO DAILY 02/09/18 [History] Allergies/Adverse Reactions: 3 Allergy/AdvReac Type Severity Reaction Status Date / Time Sulfa (Sulfonamide Allergy Hives Verified 02/09/18 11:52 Antibiotics) Date of admission: 02/09/18 14:48 Primary care physician: Heri Harrison MD Consults: 02/09/18 15:18 Consult to Cardiology [CONS] Routine Comment: Consulting Provider: Cardiology [place] Reason for Consult: chest pain in patient who has severe CAD Call Completed: Yes Anticipated date of discharge: 02/10/18 - Constitutional Vitals: Temp Pulse Resp BP Pulse Ox 97.7 F 68 15 124/81 95 02/10/18 11:13 02/10/18 11:13 02/10/18 11:13 02/10/18 11:13 02/10/18 11:13 General appearance: Present: A&O X 3, pleasant, no acute distress, answers questions appropriately Exam: PHYSICAL EXAMINATION: GENERAL APPEARANCE: The patient is alert, oriented and in no acute distress. HEENT: Head is normocephalic. The sinuses are nontender. Pupils are equal and reactive. The nares are patent. Oropharynx clear without lesions. NECK: Supple without lymphadenopathy. HEART: Regular rate and rhythm. LUNGS: No crackles or wheezes are heard. ABDOMEN: Soft, nontender, nondistended with good bowel sounds heard. Inguinal area is normal. EXTREMITIES: Without cyanosis, clubbing or edema. NEUROLOGICAL: Gross nonfocal. SKIN: Warm and dry without any rash. - Patient Status Disposition: Home, Self-Care Condition: Good Functional capacity at discharge: independent ambulation Overall status at discharge: patient is back to baseline - Discharge Instructions Follow Up With: Heri Harrison MD [Primary Care Provider] - 02/17/18 1:15 pm - Diet and Activity Activity: increase activity as tolerated Diet: diabetic diet, low fat, low cholesterol, low salt diet
[2018-02-10] MEDS ORDERED: *HR* Heparin 5,000 UNIT/ML VIAL SQ SCH (18:00)
[2018-02-10] MEDS ORDERED: Isosorbide MONOnitrate (24 HR) 60 MG TAB.ER.24H PO SCH (21:00)
[2018-02-11] MEDS ORDERED: Aspirin 81 MG TAB.CHEW PO SCH (09:00)
== END 2018-02-10 14:58 | disposition home or self-care (01) ==
LOC: 3BNU 11:45 → EMEROO 11:45 → 3BNU 14:35
PROVIDERS: ADMIT Internal Medicine; ATTEND Registered Nurse

== ENCOUNTER 2019-04-11 20:58 | Observation (INO) ==
[2019-04-11] MEDS ORDERED: Aspirin 81 MG TAB.CHEW PO ONE (21:13)
--- NOTE | 2019-04-11 21:17 | Emergency Department Note ---
Disposition Clinical Impression: ACS (acute coronary syndrome) Disposition: Admitted As Inpatient Time of Disposition: 23:43 Chest Pain HPI - General Stated Complaint: Chest Pain / Admission for Cath Time Seen by Provider: 04/11/19 21:07 Source: patient Mode of arrival: ambulatory Limitations: no limitations Vital Signs Reviewed: Yes Nursing Notes Reviewed: Yes - History of Present Illness HPI Narrative: 43 yo female with past medical history of coronary artery disease with 4 stents placed presents to the emergency room for admission for cardiac catheter. Patient was in the hospital recently with heart palpitations and chest pains and became enraged when the hospitalist would not consult cardiology for her. She signed out AMA and went through her primary care physician to schedule a stress test. The stress test was abnormal and she was told to present to the emergency room on Friday. After consultation with Dr. Jerez, the patient was determined to need a cardiac catheterization. She was told she could either be admitted over the weekend or go home on conservative medical management and present to the emergency department Friday for admission for cardiac catheter. She has been having constant chest pain with squeezing left arm pain associated with it and shortness of breath which has not been getting worse. She does not have any pain at rest. She denies nausea and vomiting, diaphoresis, fevers, headache, other symptoms at this time. - Related Data Home Medications Medication Instructions Recorded Confirmed Atorvastatin [Lipitor] 40 mg PO HS 01/10/17 04/07/19 Carvedilol [Coreg] 25 mg PO BID 01/10/17 04/07/19 Clopidogrel [Plavix] 75 mg PO DAILY 01/10/17 04/07/19 Nitroglycerin [Nitrostat] 0.4 mg SL Q5M PRN 01/10/17 04/07/19 Amitriptyline [Elavil] 25 mg PO HS 02/09/18 04/07/19 Citalopram [CeleXA] 40 mg PO DAILY 02/09/18 04/07/19 Insulin NPH Hum/Reg Insulin Hm 30 unit SQ BID 02/09/18 04/07/19 [Novolin 70-30 100 Unit/ml Vial] Lisinopril [Zestril] 10 mg PO DAILY 02/09/18 04/07/19 Dulaglutide [Trulicity] 0.75 mg SQ QWEEK 01/14/19 04/07/19 Previous Rx's Medication Instructions Recorded Isosorbide MONOnitrate (24 HR) 15 mg PO DAILY #30 tab.er.24h 04/09/19 [Imdur] Allergies Allergy/AdvReac Type Severity Reaction Status Date / Time acetaminophen [From Vicodin] Allergy Itching Verified 04/07/19 13:08 hydrocodone [From Vicodin] Allergy Itching Verified 04/07/19 13:08 Sulfa (Sulfonamide Allergy Hives Verified 04/07/19 13:08 Antibiotics) metformin AdvReac Diarrhea Verified 04/07/19 13:08 All systems ED: reviewed and negative except as stated. Review of Systems: As Per HPI Constitutional: Denies: fever, weakness Cardiovascular: Reports: chest pain, palpitations, dyspnea on exertion. Denies: orthopnea, edema, syncope Respiratory: Denies: cough, dyspnea, wheezes Gastrointestinal: Denies: abdominal pain, nausea, vomiting Musculoskeletal: Denies: back pain, neck pain Integumentary: Denies: rash Neurological: Denies: headache Chest Pain PMH - Past Medical History Medical history: Reports: coronary artery disease, diabetes, hyperlipidemia, hypertension, migraine, myocardial infarction, other Surgical history: Reports: cholecystectomy, orthopedic, other Psychiatric history: Reports: anxiety, depression [employer] history: Reports: polycystic ovary syndrome - Social History Smoking Status: Current every day smoker Alcohol use: Reports: none Drug use: Reports: none Physical Exam - General Limitations: no limitations General appearance: alert, in no apparent distress - Head Head exam: atraumatic, normocephalic - Eye Eye exam: Present: normal appearance, PERRL, EOMI - ENT ENT exam: normal exam - Neck Neck exam: Present: normal inspection. Absent: tenderness, lymphadenopathy - Chest Chest inspection: Present: normal inspection. Absent: tenderness, rash - Respiratory Respiratory exam: Present: normal lung sounds bilaterally. Absent: wheezes - Cardiovascular Cardiovascular exam: Present: regular rate, normal rhythm - Abdominal Exam Abdominal exam: Present: soft, Non-Tender. Absent: distention, guarding, rebound, rigidity - Extremities Exam Extremities exam: Present: normal inspection. Absent: tenderness, pedal edema - Neurological Exam Neurological exam: Present: alert, oriented X3 - Psychiatric Psychiatric exam: Present: normal affect, normal mood - Skin Skin exam: Present: warm, dry, intact Course Vital Signs Temperature 98.5 F 04/11/19 21:21 Pulse Rate 72 04/11/19 21:21 Respiratory Rate 14 04/11/19 21:21 Blood Pressure 132/84 04/11/19 21:21 O2 Sat by Pulse Oximetry 100 04/11/19 21:21 Temperature 98.5 F 04/11/19 21:21 Pulse Rate 66 04/11/19 23:06 Respiratory Rate 14 04/11/19 23:06 Blood Pressure 131/73 04/11/19 23:06 O2 Sat by Pulse Oximetry 96 04/11/19 23:06 Oxygen Delivery Oxygen Delivery Room Air Chest Pain - MDM Narrative Medical decision making narrative: Patient presents for admission for cardiac catheterization after an abnormal stress test last week. Call Dr. Foreman, latexer on-call who is agreeable with Dr. Jerez and that this patient likely needs heart catheterization. We will do EKG, chest x-ray and screening labs on the patient and administer a full strength aspirin to her as she has only had 1 baby aspirin today. After the labs have returned we will admit to the hospitalist for other medical management awaiting heart catheter. 2225 - chest x-ray does not demonstrate any acute cardiopulmonary disease as read by radiologist. EKG does not show any signs of acute ischemia. Awaiting lab results at this time and the patient will be admitted to the hospitalist service. 2345 - patient's labs results have returned within normal limits. She has been accepted by Dr. Smith, hospitalist, for admission for cardiac catheterization. - Medical Records Medical records reviewed: Yes I reviewed the patient's medical records. - Lab Data Lab results reviewed: Yes I reviewed the patient's lab results. Result diagrams: 04/11/19 22:00 04/11/19 22:00 Lab Results 04/11/19 04/11/19 04/11/19 Range/Units 22:00 22:00 22:00 WBC 12.7 H (4.3-11.1) K/mcL RBC 5.09 H (3.82-4.97) M/mcL Hgb 14.0 (11.5-15.4) g/dL Hct 41.8 (35.3-44.9) % MCV 82.1 L (83.0-100.0) fL MCH 27.5 L (28.0-33.3) pg MCHC 33.5 (31.6-35.5) g/dL RDW 14.4 (11.5-14.5) % Plt Count 242 (140-400) K/mcL MPV 10.0 (9.4-12.4) fL Immature Gran % 0.7 (0-4) % Seg Neutrophils % 64.8 % Lymphocytes % 25.0 % Monocytes % 7.4 % Eosinophils % 1.5 % Basophils % 0.6 % Neutrophils # 8.2 (1.6-8.9) K/mcL Lymphocytes # 3.2 (0.6-4.6) K/mcL Monocytes # 0.9 (0.0-1.3) K/mcL Eosinophils # 0.2 (0.0-0.6) K/mcL Basophils # 0.1 (0.0-0.2) K/mcL PT 11.6 (9.4-12.1) Seconds INR 1.0 APTT 31.8 (26.0-36.0) Seconds Sodium 137 (136-145) mEq/L Potassium 3.8 (3.5-5.1) mEq/L Chloride 104 (98-107) mEq/L Carbon Dioxide 22 L (23-29) mEq/L BUN 11 (6-20) mg/dL Creatinine 0.53 L (0.60-1.20) mg/dL Est GFR ( Amer) > 60 (> 60) Est GFR (Non-Af Amer) > 60 (> 60) BUN/Creatinine Ratio 21 (6-26) Glucose 128 H (70-105) mg/dL Calculated Osmolality 285 (280-300) Calcium 9.5 (8.6-10.3) mg/dL Troponin I < 0.03 (< 0.04) ng/mL Blood Type Antibody Screen 04/11/19 Range/Units 22:00 WBC (4.3-11.1) K/mcL RBC (3.82-4.97) M/mcL Hgb (11.5-15.4) g/dL Hct (35.3-44.9) % MCV (83.0-100.0) fL MCH (28.0-33.3) pg MCHC (31.6-35.5) g/dL RDW (11.5-14.5) % Plt Count (140-400) K/mcL MPV (9.4-12.4) fL Immature Gran % (0-4) % Seg Neutrophils % % Lymphocytes % % Monocytes % % Eosinophils % % Basophils % % Neutrophils # (1.6-8.9) K/mcL Lymphocytes # (0.6-4.6) K/mcL Monocytes # (0.0-1.3) K/mcL Eosinophils # (0.0-0.6) K/mcL Basophils # (0.0-0.2) K/mcL PT (9.4-12.1) Seconds INR APTT (26.0-36.0) Seconds Sodium (136-145) mEq/L Potassium (3.5-5.1) mEq/L Chloride (98-107) mEq/L Carbon Dioxide (23-29) mEq/L BUN (6-20) mg/dL Creatinine (0.60-1.20) mg/dL Est GFR ( Amer) (> 60) Est GFR (Non-Af Amer) (> 60) BUN/Creatinine Ratio (6-26) Glucose (70-105) mg/dL Calculated Osmolality (280-300) Calcium (8.6-10.3) mg/dL Troponin I (< 0.04) ng/mL Blood Type A POSITIVE Antibody Screen NEGATIVE - Radiology Data Radiology results reviewed: Yes I reviewed the patient's radiology results. - EKG Data EKG attestation: Yes I reviewed and interpreted this EKG. EKG results narrative: EKG obtained at 21:05 on 04/11/2019 Heart rate 70 bpm, TX interval 136, QRS duration 106, QT 42, QTC 423 Sinus rhythm without any ST segment elevations or depressions. No signs of any acute T-wave abnormalities. Unchanged when compared to previous EKG dated 04/07/2019. Heart Score - Score History: Moderately Suspicious EKG: Normal Age: Less than 45 Risk Factors: Equal/Greater than 3 risk factor or history of atherosclerotic disease Troponin: Less than normal limit HEART Score Total: 3
--- NOTE | 2019-04-11 21:19 | Emergency Department Note ---
Disposition Clinical Impression: ACS (acute coronary syndrome) Disposition: Admitted As Inpatient Condition: Good Time of Disposition: 21:18 General Adult HPI - General Stated complaint: Chest Pain / Admission for Cath Time Seen by Provider: 04/11/19 21:07 Source: patient, family Mode of arrival: ambulatory Nursing Notes Reviewed: Yes Vital Signs Reviewed: Yes - History of Present Illness HPI Narrative: Attestation note: Patient was seen with the emergency medicine resident/nurse practitioner/physician offset press assistant/transitional resident/medical student: Dr. JON HOUSE. I was present for the significant portions of the performance and interpretation of procedures and EKGs. I have personally performed a face to face evaluation on this patient. I have reviewed and agree with history and physical examination patient management and disposition 42-year-old female history of multiple stents MRI is coronary artery disease hypertension was evaluated last week admitted signed out AMA but had a positive stress test. Patient was seen by Dr. Way on Friday and there was a negative workup patient said that she would not go home and come back Friday night so she can be admitted for cardiac. Patient states she has a squeezing of her left arm and mild chest discomfort she is afebrile stable vital signs EKG shows no acute ischemic changes. We consulted Dr. Correa from cardiology who stated who agreed with our evaluation management and admission disposition to the hospitalist. Awaiting labs and chest x-ray. Patient disposition pending - Related Data Home Medications Medication Instructions Recorded Confirmed Atorvastatin [Lipitor] 40 mg PO HS 01/10/17 04/07/19 Carvedilol [Coreg] 25 mg PO BID 01/10/17 04/07/19 Clopidogrel [Plavix] 75 mg PO DAILY 01/10/17 04/07/19 Nitroglycerin [Nitrostat] 0.4 mg SL Q5M PRN 01/10/17 04/07/19 Amitriptyline [Elavil] 25 mg PO HS 02/09/18 04/07/19 Citalopram [CeleXA] 40 mg PO DAILY 02/09/18 04/07/19 Insulin NPH Hum/Reg Insulin Hm 30 unit SQ BID 02/09/18 04/07/19 [Novolin 70-30 100 Unit/ml Vial] Lisinopril [Zestril] 10 mg PO DAILY 02/09/18 04/07/19 Dulaglutide [Trulicity] 0.75 mg SQ QWEEK 01/14/19 04/07/19 Previous Rx's Medication Instructions Recorded Isosorbide MONOnitrate (24 HR) 15 mg PO DAILY #30 tab.er.24h 04/09/19 [Imdur] Allergies Allergy/AdvReac Type Severity Reaction Status Date / Time acetaminophen [From Vicodin] Allergy Itching Verified 04/07/19 13:08 hydrocodone [From Vicodin] Allergy Itching Verified 04/07/19 13:08 Sulfa (Sulfonamide Allergy Hives Verified 04/07/19 13:08 Antibiotics) metformin AdvReac Diarrhea Verified 04/07/19 13:08 Past Medical History - Past Medical History Medical history: Reports: coronary artery disease, diabetes, hyperlipidemia, hypertension, migraine, myocardial infarction, other Surgical history: Reports: cholecystectomy, orthopedic, other Psychiatric history: Reports: anxiety, depression RN NEONATAL history: Reports: polycystic ovary syndrome - Social History Smoking Status: Current every day smoker Smokeless Tobacco Status: No Alcohol use: Reports: none Drug use: Reports: none
[2019-04-11 22:15] LABS: Basophils # 0.1 K/mcL (0.0-0.2); Basophils % 0.6 %; Eosinophils # 0.2 K/mcL (0.0-0.6); Eosinophils % 1.5 %; Hematocrit 41.8 % (35.3-44.9); Immature Granulocytes % 0.7 % (0-4); Lymphocytes # 3.2 K/mcL (0.6-4.6); Mean Corpuscular HGB Conc 33.5 g/dL (31.6-35.5); Mean Corpuscular Hemoglobin 27.5 pg (28.0-33.3); Mean Corpuscular Volume 82.1 fL (83.0-100.0); Monocytes # 0.9 K/mcL (0.0-1.3); Monocytes % 7.4 %; Neutrophils # 8.2 K/mcL (1.6-8.9); Platelet Count 242 K/mcL (140-400); Red Blood Count 5.09 M/mcL (3.82-4.97); Red Cell Distribution Width 14.4 % (11.5-14.5); Segmented Neutrophils % 64.8 %; White Blood Count 12.7 K/mcL (4.3-11.1)
[2019-04-11 22:22] LABS: Prothrombin Time 11.6 Seconds (9.4-12.1)
[2019-04-11 22:25] LABS: Activated Partial Thrombo Time 31.8 Seconds (26.0-36.0)
[2019-04-11 22:36] LABS: BUN/Creatinine Ratio 21 (6-26); Blood Urea Nitrogen 11 mg/dL (6-20); Calcium 9.5 mg/dL (8.6-10.3); Carbon Dioxide 22 mEq/L (23-29); Chloride 104 mEq/L (98-107); Glucose 128 mg/dL (70-105); Osmolality,Calculated 285 (280-300); Potassium 3.8 mEq/L (3.5-5.1); Sodium 137 mEq/L (136-145); eGFR For African Americans > 60 (> 60); eGFR For Non-African Americans > 60 (> 60)
[2019-04-11 22:37] LABS: Troponin I < 0.03 ng/mL (< 0.04)
--- NOTE | 2019-04-12 01:56 | Internal Med History&Physical ---
Date of Encounter: 04/12/19 Time of Encounter: 01:55 Internal Medicine - H&P: HPI Chief complaint: chest pain Admitted From: Home Plans for Post Hospital Care: Home History of present illness: Zahira Keenan is a 43-year-old obese woman with hypertension, diabetes, hyperlipidemia, tobacco use and coronary artery disease with 4 stents currently on dual antiplatelet therapy who has been seen here a number of times for evaluation of chest pain and last week was found to have perfusion imaging positive for ischemia with a small to medium size reversible perfusion defect noted in the mid anterior and apical anterior segments. She was seen by cardiology and scheduled to undergo a cardiac catheter today so was instructed to come to the emergency room for admission. I am she reports feeling well but still has intermittent episodes of chest pain with exertion. He says the recently added long-acting nitrates from 2 days ago has offered no changes in her chest pain as of now. Routine lab work was done and cardiology consulted and she is admitted for ongoing care. Vitals: Reviewed General: Well-appearing and in no acute distress. Skin: Warm and supple. HEENT: Moist mucous membranes. No conjunctivae pallor. Neck: No lymphadenopathy. No JVD. No carotid bruits. No palpable thyroid. Chest: Normal thoracic expansion. Normal breath sounds. Clear to auscultation. Heart: Normal S1 & S2; rhythmic. No rubs or murmurs. Abdomen: Non-distended, soft and non-tender to palpation. No peritoneal reactio n. Extremities: No clubbing, cyanosis or edema. No calf tenderness. Normal distal pulses. Neurological: Awake, alert and oriented to person, place and time. No focal deficits. Psych: Affect appropriate. Assessment/Plan 1. Coronary artery disease: Has known CAD with stents already and seen to have another positive stress test with ongoing clinical symptoms. She will remain nothing by mouth as we continue dual antiplatelet therapy and await cardiac catheterization today. Her [facility] consult is placed and further care will be per their recommendations. 2. Hypertension: Her home oral antihypertensives will be resumed. 3. Diabetes: She will remain on insulin sliding scale as of now. 4. Obesity: Counseled and educated on therapeutic lifestyle changes for weight loss as it will be of benefit in controlling comorbidities. Thread Cutter Tender evaluation advised. 5. Tobacco use: 5 minutes were spent counseling and educating the patient on this habit. services advisor and resources were made available. 6. Leukocytosis: Seemingly a long-standing issue for years as seen on old records but no identified sources known. No signs of infection present however. Continue monitoring. Past Med Surg Social Fam HX - Past Medical History Medical history: coronary artery disease, diabetes, hyperlipidemia, hypertension, migraine, myocardial infarction, other Additional medical history: PCOS. pituitary adenoma. ulcer of left foot Psychiatric history: anxiety, depression - Past Surgical History Surgical History: cholecystectomy Additional surgical history: cath no stents. stent placement at [facility] 1 stent. right elbow surgery. stents [facility] 3 stents - Social History Smoking Status: Current every day smoker Packs per day: 1 Smokeless Tobacco Status: No Alcohol use: none Drug use: none - Family History Mother Adopted: No Family Member Ethnicity: Non- Living Status: Still Living Hx Family Cardiac Disorders: Yes (HTN) Hx Family Respiratory Disorders: No Hx Family Cancer: No Hx Family GI Disorders: No Hx Family Endocrine Disorder: Yes (DM) Hx Family Neuromuscular Disorders: No Hx Family Neurologic Disorders: No Hx Family HEENT Disorders: No Hx Family Autoimmune Disorders: No Maternal Grandmother Hx Family Cardiac Disorders: Yes (CHF, HTN) Hx Family Endocrine Disorder: Yes (DM) Internal Medicine - H&P: Meds RX: Atorvastatin [Lipitor] 40 mg PO HS 01/10/17 [History] RX: Carvedilol [Coreg] 25 mg PO BID 01/10/17 [History] RX: Clopidogrel [Plavix] 75 mg PO DAILY 01/10/17 [History] RX: Nitroglycerin [Nitrostat] 0.4 mg SL Q5M PRN 01/10/17 [History] RX: Amitriptyline [Elavil] 25 mg PO HS 02/09/18 [History] RX: Citalopram [CeleXA] 40 mg PO DAILY 02/09/18 [History] RX: Insulin NPH Hum/Reg Insulin Hm [Novolin 70-30 100 Unit/ml Vial] 30 unit SQ BID 02/09/18 [History] RX: Lisinopril [Zestril] 10 mg PO DAILY 02/09/18 [History] Dulaglutide [Trulicity] 0.75 mg SQ QWEEK 01/14/19 [History] Isosorbide MONOnitrate (24 HR) [Imdur] 15 mg PO DAILY #30 tab.er.24h 04/09/19 [Rx] Aspirin [Adult Aspirin] 81 mg PO DAILY 04/12/19 [History] Allergy/AdvReac Type Severity Reaction Status Date / Time acetaminophen [From Vicodin] Allergy Itching Verified 04/07/19 13:08 hydrocodone [From Vicodin] Allergy Itching Verified 04/07/19 13:08 Sulfa (Sulfonamide Allergy Hives Verified 04/07/19 13:08 Antibiotics) metformin AdvReac Diarrhea Verified 04/07/19 13:08 All Systems PM: A 10-system review of systems was performed and is negative for pertinent findin gs except as documented above in the HPI. - Constitutional Vitals: Temp Pulse Resp BP Pulse Ox 98.4 F 61 16 121/73 93 04/12/19 01:26 04/12/19 01:26 04/12/19 01:26 04/12/19 01:26 04/12/19 01:26 Exam: . Internal Med - H&P Results - Labs CBC & Chem 7: 04/11/19 22:00 04/11/19 22:00 Labs: Short CBC 04/11/19 Range/Units 22:00 WBC 12.7 H (4.3-11.1) K/mcL Hgb 14.0 (11.5-15.4) g/dL Hct 41.8 (35.3-44.9) % Plt Count 242 (140-400) K/mcL Neutrophils # 8.2 (1.6-8.9) K/mcL BMP 04/11/19 22:00 Sodium 137 Potassium 3.8 Chloride 104 Carbon Dioxide 22 L BUN 11 Creatinine 0.53 L Glucose 128 H Calcium 9.5 Cardiac Enzymes 04/11/19 Range/Units 22:00 Troponin I < 0.03 (< 0.04) ng/mL - Impressions ITS Impressions Chest X-Ray 04/11/19 21:13 IMPRESSION: No evidence of acute cardiopulmonary disease. D/ / Lester Austin MD / Lester Austin MD Interpreting Provider: Lester Austin MD - Time Spent With Patient Total time spent is greater than 50% in coordination of care (as documented) at patient's floor/unit and/or counseling patient: Greater than 35 minutes
[2019-04-12] MEDS ORDERED: *HR* Dextrose 50 % in Water (Syg) 50 ML SYRINGE IVP PRN (04:36)
[2019-04-12] MEDS ORDERED: Dextrose Gel 15 GM/37.5 ML TUBE PO PRN ×2 (04:36)
[2019-04-12] MEDS ORDERED: D5% in Water 1,000 ML IVC PRN (04:44)
[2019-04-12] MEDS: *HR* Heparin 5,000 UNIT/ML VIAL SQ SCH ×2 (05:28→17:37)
[2019-04-12] MEDS: Insulin LISPRO 300 UNITS/3 ML VIAL SQ SCH ×3 (06:11→17:37)
[2019-04-12] MEDS: Isosorbide MONOnitrate (24 HR) 30 MG TAB.ER.24H PO SCH (09:04)
[2019-04-12] MEDS: Aspirin Enteric Coated 81 MG Tablet PO SCH (09:05)
--- NOTE | 2019-04-12 09:45 | Cardiology Consult Note ---
<Del Charles - Last Filed: 04/12/19 10:13> Date of Encounter: 04/12/19 Time of Encounter: 09:45 Assessment and Plan (1) Chest pain Current Visit: No Status: Acute Per Cardiology: Troponins negative 5. Seen this morning experiencing chest pain 6 out of 10. Provided SL nitroglycerin and nasal cannula O2. Repeat assessment showed CP res olved 0/10. Qualifiers: Chest pain type: unspecified Qualified Code(s): R07.9 - Chest pain, unspecified (2) Positive cardiac stress test Current Visit: No Status: Acute Per Cardiology: Non-exercise nuclear chest test perfusion imaging was positive for ischemia 04/08/2019. Determined to be intermediate risk stress test. Discussed and reviewed with Dr. Foreman and Dr. See, plan for [facility] today. Patient and family agreeable. Will obtain serum HCG. (3) Coronary artery disease Current Visit: No Status: Chronic Per Cardiology: Known history of CAD with last left heart catheterization December 2016 with proximal LAD 30%, mid LAD 100% BINDERY TECHNICIAN with distal LAD with faint left to left collaterals, diagonal 199%, proximal circumflex 20%, mid circumflex 30%, distal circumflex 40%, OM1 60%, OM 2 patent stent, proximal RCA 99%, mid RCA 100% BINDERY TECHNICIAN with distal RCA with right to right and [id number] collaterals. Recommendations at that time were to consider PCI of her LAD and RCA BINDERY TECHNICIAN lesions. Underwent stenting at [place] March 2017. Has not had ischemic evaluation since that time. On asa. plavix, stain, BB, ACEI, Imdur. Qualifiers: Coronary Disease-Associated Artery/Lesion type: [place] artery [place] vs. transplanted heart: [place] heart Associated angina: with stable angina Qualified Code(s): I25.118 - Atherosclerotic heart disease of [place] coronary artery with other forms of angina pectoris Discussion w patient/family: The assessment and plan as outlined above was discussed with the patient and/or family members who expressed understanding and agreement. All questions were answered. Thank you for involving us in the care of your patient. Please call wi th any questions. History of Present Illness Consult date: 04/12/19 Consult reason: +ST, CP Chief complaint: CP History of present illness: Last seen by Dr. Gandhi October 2018. Previous records reviewed: Ms. Keenan is a 43 year old "obese woman with hypertension, diabetes, hyperlipidemia, tobacco use and coronary artery disease with 4 stents currently on dual antiplatelet therapy who has been seen here a number of times for evaluation of chest pain and last week was found to have perfusion imaging positive for ischemia with a small to medium size reversible perfusion defect noted in the mid anterior and apical anterior segments". Cardiology consult for chest pain and abnormal stress test results. Patient seen with family at bedside. Reports started developing midsternal chest burning and squeezing intermittently over the past one week. Reports radiation to her left arm. Currently expressing chest pain 6 out of 10 with left arm radiation. Reports compliance with all medications. Denies any active bleeding or blood loss. Denies any shortness of breath, palpitations, fatigue. Reports had last LHC at [place] March 2017 with BINDERY TECHNICIAN fixes. Past Med Surg Social Fam HX - Past Medical History Attestation: Yes The following information was validated with the patient. Source: patient, old records reviewed, obtained from family Medical history: coronary artery disease, diabetes, hyperlipidemia, hypertension, migraine, myocardial infarction, other Additional medical history: PCOS. pituitary adenoma. ulcer of left foot Psychiatric history: anxiety, depression - Past Surgical History Surgical History: cholecystectomy Additional surgical history: cath no stents. stent placement at [place] 1 stent. right elbow surgery. stents [place] 3 stents - Social History Smoking Status: Current every day smoker Packs per day: 1 Smokeless Tobacco Status: No Alcohol use: none Drug use: none - Family History Mother Adopted: No Family Member Ethnicity: Non- Living Status: Still Living Hx Family Cardiac Disorders: Yes (HTN) Hx Family Respiratory Disorders: No Hx Family Cancer: No Hx Family GI Disorders: No Hx Family Endocrine Disorder: Yes (DM) Hx Family Neuromuscular Disorders: No Hx Family Neurologic Disorders: No Hx Family HEENT Disorders: No Hx Family Autoimmune Disorders: No Maternal Grandmother Hx Family Cardiac Disorders: Yes (CHF, HTN) Hx Family Endocrine Disorder: Yes (DM) Medications and Allergies Atorvastatin [Lipitor] 40 mg PO HS 01/10/17 [History] Carvedilol [Coreg] 25 mg PO BID 01/10/17 [History] Clopidogrel [Plavix] 75 mg PO DAILY 01/10/17 [History] Nitroglycerin [Nitrostat] 0.4 mg SL Q5M PRN 01/10/17 [History] Amitriptyline [Elavil] 25 mg PO HS 02/09/18 [History] Citalopram [CeleXA] 40 mg PO DAILY 02/09/18 [History] Insulin NPH Hum/Reg Insulin Hm [Novolin 70-30 100 Unit/ml Vial] 30 unit SQ BID 02/09/18 [History] Lisinopril [Zestril] 10 mg PO DAILY 02/09/18 [History] Dulaglutide [Trulicity] 0.75 mg SQ QWEEK 01/14/19 [History] Isosorbide MONOnitrate (24 HR) [Imdur] 15 mg PO DAILY #30 tab.er.24h 04/09/19 [Rx] Aspirin [Adult Aspirin] 81 mg PO DAILY 04/12/19 [History] Allergy/AdvReac Type Severity Reaction Status Date / Time acetaminophen [From Vicodin] Allergy Itching Verified 04/07/19 13:08 hydrocodone [From Vicodin] Allergy Itching Verified 04/07/19 13:08 Sulfa (Sulfonamide Allergy Hives Verified 04/07/19 13:08 Antibiotics) metformin AdvReac Diarrhea Verified 04/07/19 13:08 All Systems Review: The remainder of the systems were reviewed and are negative - Cardiovascular Cardiovascular: as per HPI, chest pain at rest, radiating jaw, neck or arm pain Physical Examination Vital Signs, Last 4 Hours Temp Pulse Resp BP Pulse Ox 04/12/19 07:17 97.7 F 65 16 104/70 95 General: Conversant, No Apparent Distress HEENT: Atraumatic, Normocephaly, Mucus Membranes Moist Neck: No JVD, Normal carotid pulses Cardiac: Reg Rate and Rhythm, Normal S1 and S2, No Murmur Lungs: Normal Breath Sounds, No Wheeze, Rales, Rhonchi Neuro: Alert and responsive, No focal deficits noted Abdomen: Soft, Non-Tender Skin: No rashes noted on visualized skin Musculoskeletal: No Chest Wall Tenderness Extremities: No Clubbing, No Cyanosis, No Edema, Normal Pulses Results 04/11/19 22:00 04/11/19 22:00 Lab Results Laboratory Tests 04/07/19 04/07/19 04/08/19 13:19 18:53 00:29 WBC Hgb Hct Plt Count INR Creatinine Est GFR (Non-Af Amer) Hemoglobin A1c Troponin I < 0.03 < 0.03 < 0.03 04/08/19 04/09/19 04/11/19 00:29 17:59 22:00 WBC Hgb Hct Plt Count INR 1.0 Creatinine Est GFR (Non-Af Amer) Hemoglobin A1c 7.0 H Troponin I < 0.03 04/11/19 04/11/19 22:00 22:00 WBC 12.7 H Hgb 14.0 Hct 41.8 Plt Count 242 INR Creatinine 0.53 L Est GFR (Non-Af Amer) > 60 Hemoglobin A1c Troponin I < 0.03 ITS Impressions Chest X-Ray 04/11/19 21:13 IMPRESSION: No evidence of acute cardiopulmonary disease. D/ / Lester Austin MD / Lester Austin MD Interpreting Provider: Lester Austin MD Active Medications Amitriptyline HCl (Elavil) 25 mg PO HS [facility] Stop: 10/12/19 01:31 Last Admin: 04/12/19 01:39 Dose: Not Given Documented by: Aspirin (Aspirin Ec) 81 mg PO DAILY [facility] Stop: 10/12/19 09:01 Last Admin: 04/12/19 09:05 Dose: 81 mg Documented by: Atorvastatin Calcium (Lipitor) 40 mg PO HS [facility] Stop: 10/12/19 01:31 Last Admin: 04/12/19 01:39 Dose: Not Given Documented by: Carvedilol (Coreg) 25 mg PO BID [facility]; Protocol Stop: 10/12/19 09:01 Last Admin: 04/12/19 09:05 Dose: 25 mg Documented by: Citalopram Hydrobromide (Celexa) 40 mg PO DAILY [facility] Stop: 10/12/19 09:01 Last Admin: 04/12/19 09:05 Dose: 40 mg Documented by: Clopidogrel Bisulfate (Plavix) 75 mg PO DAILY [facility] Stop: 10/12/19 09:01 Last Admin: 04/12/19 09:04 Dose: 75 mg Documented by: Dextrose/Water (Dextrose 50% (Syg)) 25 ml IVP AD PRN PRN Reason: Hypoglycemia Stop: 10/12/19 04:37 Glucagon (Glucagen) 1 mg IM ONCE PRN PRN Reason: Hypoglycemia Stop: 10/12/19 04:45 Glucose (Gluctose) 15 gm PO ONCE PRN PRN Reason: Hypoglycemia Stop: 10/12/19 04:37 Glucose (Gluctose) 30 gm PO ONCE PRN PRN Reason: Hypoglycemia Stop: 10/12/19 04:37 Heparin Sodium (Porcine) (Heparin) 5,000 unit SQ Q12HCO [facility] Stop: 10/12/19 06:01 Last Admin: 04/12/19 05:28 Dose: Not Given Documented by: Dextrose (Dextrose 5%) 1,000 mls @ 100 mls/hr IVC .Q10H PRN PRN Reason: HYPOGLYCEMIA Stop: 10/12/19 04:45 Insulin Human Lispro (Humalog) 0 units SQ Q6HR [facility]; Protocol Stop: 10/12/19 06:01 Last Admin: 04/12/19 06:11 Dose: Not Given Documented by: Isosorbide Mononitrate (Imdur) 15 mg PO DAILY [facility] Stop: 10/12/19 09:01 Last Admin: 04/12/19 09:04 Dose: 15 mg Documented by: Lisinopril (Zestril) 10 mg PO DAILY [facility]; Protocol Stop: 10/12/19 09:01 Last Admin: 04/12/19 09:05 Dose: 10 mg Documented by: Nitroglycerin (Nitroglycerin) 0.4 mg SL Q5MPRN PRN PRN Reason: Chest Pain Stop: 10/12/19 01:17 - Imaging and Cardiology Stress Test: report reviewed Echo: report reviewed Cardiac cath: report reviewed - EKG Interpretation EKG results cardiology: personally reviewed (Sinus rhythm the 70), normal ECG, sinus rhythm, no diagnostic ischemia Consult Discharge Plan - Plan Referrals: Heri Harrison MD [Primary Care Provider] - 04/19/19 1:15 pm <Raysa See - Last Filed: 04/12/19 12:50> Date of Encounter: 04/12/19 - Attending Attestation I examined this patient and my medical decision-making was reviewed with the FOLDER SEAMER. I agree with the documented findings, disposition and treatment plan as described. Assessment and Plan Discussion w patient/family: The assessment and plan as outlined above was discussed with the patient and/or family members who expressed understanding and agreement. All questions were answered. Thank you for involving us in the care of your patient. Please call with any questions. History of Present Illness History of present illness: Ms. Keenan is a 43 year old female All Systems Review: The remainder of the systems were reviewed and are negative Results 04/11/19 22:00 04/11/19 22:00 Lab Results 04/11/19 04/11/19 04/11/19 22:00 22:00 22:00 WBC 12.7 H Hgb 14.0 Hct 41.8 Plt Count 242 INR 1.0 APTT 31.8 Sodium 137 Potassium 3.8 Chloride 104 Carbon Dioxide 22 L BUN 11 Creatinine 0.53 L Glucose 128 H Calcium 9.5 Troponin I < 0.03
[2019-04-12] MEDS: Nitroglycerin 0.4 MG TAB.SUBL SL PRN ×2 (09:55→10:07)
[2019-04-12] MEDS ORDERED: 0.9 % Sodium Chloride 1,000 ML ONE ×2 (11:28→11:37)
[2019-04-12] MEDS ORDERED: Heparin 1,000 UNITS/500 mL 500 ML ONE (11:28)
[2019-04-12] MEDS ORDERED: Nitroglycerin 1,000 MCG/10 ML VIAL IV ONE (11:29)
[2019-04-12] MEDS ORDERED: *HR* Heparin 10,000 UNIT/10 ML VIAL ONE (11:29)
[2019-04-12] MEDS ORDERED: ISOVUE-370 200 ML INFUS..BTL ONE ×2 (11:29→12:22)
[2019-04-12] MEDS ORDERED: *HR* FentaNYL (PF) 100 MCG/2 ML VIAL ONE ×2 (11:54→12:53)
[2019-04-12] MEDS ORDERED: *HR* Midazolam HCl 2 MG/2 ML VIAL ONE ×2 (11:54→12:54)
--- NOTE | 2019-04-12 11:55 | Pre-Sedation Evaluation ---
Pre-sedation evaluation - Pre-sedation checklist Date of procedure: 04/12/19 Procedure: heart cath Recent Vitals: Last Vital Signs Temp 97.7 F 04/12/19 07:17 Pulse 65 04/12/19 07:17 Resp 16 04/12/19 07:17 BP 104/70 04/12/19 07:17 Pulse Ox 95 04/12/19 07:17 H&P (including ROS) documented in medical record: Yes Previous reaction to sedatives/anesthetics: No Dietary Status: NPO after Midnight Dentition: No loose teeth or bridges ASA Classification *see protocol: CLASS II-Mild systemic disease Cardiac Registry (Cardio Only) - Functional Capacity Functional Capacity: >=4 METS with symptoms - Clincal Frailty Scale Clinical Frailty Scale: Managing Well
[2019-04-12] MEDS ORDERED: Adenosine 90 MG/30 ML MLS IV ONE (12:11)
[2019-04-12] MEDS ORDERED: Tirofiban 12.5 MG/250ML 12.5 MG/250 ML BAG ONE (12:13)
[2019-04-12] MEDS ORDERED: Tirofiban 12.5 MG/250ML 12.5 MG/250 ML BAG IVC SCH (13:00)
--- NOTE | 2019-04-12 13:11 | Invasive Diagnostic Lab Proc ---
Name: Zahira Keenan Date of Study: 04/12/2019 Date: 1975 Ht: 68.1in Medical Record#: [id number] Age: 43 Wt: 266.76lb Gender: Female BSA: 2.31 Order #: [id number] BMI: 40.43 Physicians Procedure Physician: Silke Foreman MD Referring MD: Referring MD: Staff Name Position Time In James Newman RN Monitor 11:45 AM Cindy Roberson RT (R) Scrub 11:45 AM Lauren Stuart RN Manager Of Data 11:45 AM Cindy Kaplan RT (R) Monitor 12:16 PM Tamara Franco RN Manager Of Data 12:16 PM Indications Indication Abnormal Test - Stress Procedures Performed Procedure L HRT ARTERY/VENTRICLE ANGIO PRQ CARD IVETTE STENT W/ANGIO 1 VSL IV Doppler BLD Flow 1st Vessel PRQ CARDIAC ANGIOPLAST 1 ART Pre-Procedure Checklist Informed consent is complete signed and on chart. H&P is on chart. ID band is on and ID verified with patient. Patient NPO for procedure The procedure was described for the patient and questions were answered. Blood Pressure: 104/70 ECG is on chart. Plan of Care Patient will tolerate the procedure without complications. Adequate level of comfort will be maintained. Hemodynamics will remain stable Patient will recover from procedure without complications. Respiratory function will be maintained. Cardiac rhythm will remain stable. Patient temperature will be maintained. Patient and/or family have verbalized understanding of the procedure. Patient Education Chief Complaint/Reason for Test: Cardiac Cath Developmental Category: Adult (18-64 years) Developmentally Appropriate for Age: Yes Learning Barriers: None Education Needs: Procedure Education Method: Verbal Information Taught: Cardiac Cath Educational Evaluation: Able to repeat information Intravenous Access Time IV Size Location DC'd Fluid/Drip Rate Units RN 20g 1 1/" Patent On Arrival Lt Arm 0.9NaCl 25 ml/hr Allergies hydrocodone acetaminophen metformin Sulfa (Sulfonamide Antibiotics) Vital Signs Time BP (mmHg) HR (bpm) O2 Sat. RR (bpm) LOC 11:46 AM / % 5 = Fully awake and oriented or at pre-proc level 11:46 AM / % 4 = Oriented but drowsy 11:50 AM 121 / 72 61 93 % 14 11:55 AM 115 / 70 58 96 % 14 12:00 PM 119 / 73 60 98 % 15 12:05 PM 113 / 56 63 94 % 16 12:10 PM 111 / 64 62 93 % 14 12:15 PM 112 / 65 63 98 % 12 12:20 PM 105 / 53 59 96 % 13 12:25 PM 105 / 49 60 95 % 15 12:30 PM 108 / 58 58 97 % 15 12:35 PM 105 / 50 60 94 % 16 12:40 PM 110 / 48 61 96 % 13 12:45 PM 116 / 64 60 95 % 15 Procedural Medications Time Medication Dose Units Method Given By 11:48 AM Oxygen 2 L/min nasal cannula Lauren Stuart RN 11:55 AM Versed 1 mg Intravenous DecLauren law RN 11:55 AM Fentanyl 50 mcg Intravenous Lauren Stuart RN 11:57 AM Lidocaine 2% 10 ml Subcutaneous Silke Foreman MD 12:00 PM Versed 0.5 mg Intravenous Lauren Stuart RN 12:00 PM Fentanyl 25 mcg Intravenous Lauren Stuart RN 12:12 PM Heparin 5000 units Intravenous Lauren Stuart RN 12:16 PM Aggrastat Bolus: 62 ml Intravenous Lauren Stuart RN 12:16 PM Aggrastat 12.5mg/250ml 22.5 ml Intravenous Lauren Stuart RN 12:31 PM Nitroglycerin 200 mcg Intracoronary Henri Foreman MD 12:31 PM Nitroglycerin 200 mcg Intracoronary Henri Foreman MD 12:35 PM 90mg Adenosine in 90 ml 0.9 NS 999 mcg Intravenous Tamara Franco RN 12:50 PM Plavix 75 mg Orally Tamara Franco RN ASA Classification: CLASS II- Mild systemic disease (i.e. well-controlled diabetes, hypertension, asthma, cigarette smoking) Shaina Score Preprocedure Postprocedure Activity 2- Moves 4 extremities sustained head lift Activity 2- Moves 4 extremities sustained head lift Circulation 2- SBP +/= 20 points of pre-anesthetic level Circulation 2- SBP +/= 20 points of pre-anesthetic level Consciousness 2- Awake and alert oriented x 3 Consciousness 2- Awake and alert oriented x 3 O2 Saturation 2- Able to maintain O2 satruation of 92% on room air O2 Saturation 2- Able to maintain O2 satruation of 92% on room air Respiratory 2- Able to deep breathe and cough well Respiratory 2- Able to deep breathe and cough well Total Score 10 Total Score 10 Contrast Agent: Isovue Diagnostic Contrast: 254 ml Total Contrast: 254 ml Fluoro Dose: 138 mGy Activated Clotting Time Time Seconds to Clot 12:10 PM 144 Procedure Log Time Note Enter By 11:45 AM CathStat 11:45 AM Pt arrived to tag and label cutter 2 at 11:45 oparker 11:45 AM Patient charges- Angio tray pack, Navilyst 3mm J, Pulse Oximetry and ACIST tubing and transducer oparker 11:45 AM Physician arrived 11:45 oparker 11:45 AM James Newman RN Position: Monitor Time in: 11:45 oparker 11:45 AM Cindy Roberson RT (R) Position: Scrub Time in: 11:45 oparker 11:45 AM Lauren Stuart RN Position: Manager Of Data Time in: 11:45 oparker 11:46 AM Yunier and peri completed oparker 11:46 AM Sign in performed according to hospital policy. Informed consent was obtained. oparker 11:46 AM Time: 11:46 Patient comfortable and pain free: Yes oparker 11:46 AM Time: 11:46LOC: 5 = Fully awake and oriented or at pre-proc level oparker 11:46 AM Procedure start 11:46 oparker 11:48 AM ASA Class CLASS II- Mild systemic disease (i.e. well-controlled diabetes, hypertension, asthma, cigarette smoking) oparker 11:48 AM Time: 11:48 Oxygen on at 2 L/min per nasal cannula by Lauren Stuart RN oparker 11:49 AM Vitals capture started with the following parameters, Patient=Adult, Interval=5 min, Initial Juqrekrb=376 mmHg, Deflation Rate=5 mmHg, Cuff placed on Left Arm 11:50 AM HR=61 bpm, AFLC=520/72 mmhg, SpO2=93.0 %, Resp=14 B/min, Comment=Sinus Julio Cesar 11:50 AM Recorded ECG: HR=60 Condition=Condition 1 11:51 AM Hair removed from procedure site in holding area using clippers. Bilateral groin prepped with Chloraprep by Lauren Stuart RN, then patient was draped. Skin intact. oparker 11:55 AM HR=58 bpm, TRUB=543/70 mmhg, SpO2=96.0 %, Resp=14 B/min, Comment=Sinus Julio Cesar 11:55 AM Time: 11:55 Versed 1 mg Intravenous Given by Lauren Stuart RN oparjenny 11:55 AM Time: 11:55 Fentanyl 50 mcg Intravenous Given by Lauren Stuart RN 11:57 AM Time out was performed according to hospital policy. Conscious sedation and anesthesia was achieved (see medication log with in this report above) oparker 11:58 AM Time: 11:57 10 ml Lidocaine 2% to right groin Subcutaneous Given by Silke Foreman MD oparjenny 12:00 PM Time: 12:00 Versed 0.5 mg Intravenous Given by Lauren Stuart RN 12:00 PM Time: 12:00 Fentanyl 25 mcg Intravenous Given by Lauren Stuart RN 12:00 PM HR=60 bpm, YHUZ=493/73 mmhg, SpO2=98.0 %, Resp=15 B/min, Comment=Sinus Julio Cesar 12:00 PM Micro-Introducer Kit utilized for sheath placement oparker 12:00 PM Pressure channel 1 zeroed. 12:00 PM 4 of contrast hand injected. oparker 12:01 PM Access obtained by percutaneous puncture. 6Fr 10cm Terumo [place] sheath placed in right Femoral artery. [id number] oparker 12:01 PM 0.035 145cm Navilyst 3mmJ wire [id number] oparker 12:01 PM Time: 11:46 Patient comfortable and pain free: Yes oparker 12:01 PM Time: 11:46LOC: 4 = Oriented but drowsy oparker 12:01 PM 5Fr FR 4 catheter inserted over the wire DN oparker 12:01 PM Recorded Pressure: Ao, HR=59, Condition=Condition 1 (Aorta) Ao 119/81/98 12:01 PM RCA angiography performed in multiple views. oparker 12:02 PM Catheter removed oparker 12:02 PM 5Fr FL 4 catheter inserted over the wire DN oparker 12:03 PM Lesion found in Proximal RCA. Pre Stenosis: 95 Pre CARLOS A Flow: oparker 12:03 PM Recorded Pressure: Ao, HR=67, Condition=Condition 1 (Aorta) Ao 108/83/96 12:03 PM LCA angiography performed in multiple views. oparker 12:04 PM Lesion found in Mid RCA. Pre Stenosis: 100 Pre CARLOS A Flow: oparker 12:05 PM Right Coronary, Right Posterior Descending Arteries with Right Posterolateral and Acute Marginal branches with 100 % stenosis. If graft is supplying this area, 0 % stenosis oparker 12:05 PM HR=63 bpm, BFUK=445/56 mmhg, SpO2=94.0 %, Resp=16 B/min, Comment=Sinus Julio Cesar 12:06 PM Catheter removed oparker 12:06 PM 5Fr Pigtail catheter inserted over the wire DN oparker 12:06 PM Recorded Pressure: LV, HR=62, Condition=Condition 1 (Left Ventricle) LV 108/16/18 12:07 PM Recorded Pressure: LV, Ao, HR=64, Condition=Condition 1 (Left Ventricle) LV 101/8/15, (Aorta) Ao 101/72/86 12:08 PM Catheter removed oparker 12:08 PM Inflation device was opened. oparker 12:10 PM HR=62 bpm, KGFR=779/64 mmhg, SpO2=93.0 %, Resp=14 B/min, Comment=Sinus Julio Cesar 12:10 PM At 12:10 the ACT was 144 seconds. oparker 12:11 PM .014 [employer] [place] 190cm guide wire across target lesion- successful. reused? No oparker 12:11 PM 6Fr XB LAD 3.5 Evans Bright-Tip guide catheter was used to cannulate the PCI vessel successfully. reused? No oparker 12:12 PM Time: 12:12 Heparin 5000 units Intravenous Given by Lauren Stuart RN tsites 12:15 PM HR=63 bpm, BJJW=868/65 mmhg, SpO2=98.0 %, Resp=12 B/min 12:16 PM Time: 12:16 Aggrastat Bolus: 62 ml Intravenous Given by Lauren Stuart RN Landa pump tsites 12:16 PM Time: 12:16 Aggrastat 12.5mg/250ml 22.5 ml Intravenous Given by Lauren Stuart RN Landa pump tsites 12:16 PM Cindy Kaplan RT (R) Position: Monitor Time in: 12:16 to relieve James Newman RN tsites 12:17 PM Tamara Franco RN Position: Manager Of Data Time in: 12:16 to relieve Lauren Stuart RN tsites 12:17 PM Recorded Pressure: Ao, HR=61, Condition=Condition 1 (Aorta) Ao 93/66/79 12:18 PM .014 [employer] [place] 182cm guide wire across target lesion- successful. reused? No tsites 12:19 PM Pressure channel 4 zeroed. 12:20 PM HR=59 bpm, UCCU=411/53 mmhg, SpO2=96 %, Resp=13 B/min 12:22 PM Lesion found in Distal Circumflex. Pre Stenosis: 70 Pre CARLOS A Flow: 3: Complete and Brisk Flow/Perfusion tsites 12:22 PM Circumflex, Obtuse Marginal, Left Posterior Descending, and Left Posterolateral Coronary Arteries with 70 % stenosis. If graft is supplying this area, 0 % stenosis tsites 12:22 PM Lesion found in Mid LAD. Pre Stenosis: 60 Pre CARLOS A Flow: tsites 12:22 PM Proximal Left Anterior Descending Coronary Artery with 60% stenosis. If graft is supplying this territory, 0 % stenosis. tsites 12:23 PM 2.5 mm x 12 mm Emerge Monorail balloon across target lesion- successful. reused? No tsites 12:23 PM Balloon inflated @ 6 anabel for 18 seconds circ tsites 12:24 PM Balloon inflated @ 6 anabel for 4 seconds tsites 12:25 PM HR=60 bpm, SNLC=810/49 mmhg, SpO2=95 %, Resp=15 B/min 12:29 PM Balloon catheter removed intact. tsites 12:29 PM 4.0mm x 16mm Synergy drug-eluting stent across target lesion- successful Lot #[id number] tsites 12:29 PM Stent deployed @ 9 anabel for 7 seconds tsites 12:29 PM Stent balloon reinflated @ 14 anabel for 10 seconds tsites 12:30 PM Stent delivery system removed intact. tsites 12:30 PM HR=58 bpm, SDGX=936/58 mmhg, SpO2=97 %, Resp=15 B/min 12:31 PM Time: 12:31 Nitroglycerin 200 mcg Intracoronary Given by Henri Formean MD tsites 12:31 PM Time: 12:16 Patient comfortable and pain free: Yes tsites 12:32 PM Time: 12:31 Nitroglycerin 200 mcg Intracoronary Given by Henri Foreman MD tsites 12:34 PM Guide wire removed intact.from circ tsites 12:34 PM Asist FFR Catheter advanced to target lesion. lad tsites 12:35 PM Pressure channel 4 equalized to channel 1. 12:35 PM HR=60 bpm, BQOS=344/50 mmhg, SpO2=94 %, Resp=16 B/min 12:36 PM Time: 12:35 90mg Adenosine in 90 ml 0.9 NS 999 mcg Intravenous Given by Tamara Franco RN Landa pump tsites 12:36 PM Recorded Pressure: Ao, PV1, HR=61, Condition=Condition 1 (Aorta) Ao 96/70/83, (Portal Vein) PV1 88/87/70 12:37 PM FFR: Value=0.76, Condition=Condition 1, Device=VOLCANO PRIME WIRE 12:37 PM Recorded Pressure: Ao, PV1, FFR=0.76, HR=65, Condition=Condition 1 (Aorta) Ao 108/66/84, (Portal Vein) PV1 82/82/67 12:38 PM FFR Measurement: 0.76 lad tsites 12:40 PM 3.0 mm x 20mm NC Emerge balloon across target lesion- successful. reused? No tsites 12:40 PM Balloon inflated @ 16 anabel for 10 seconds tsites 12:40 PM HR=61 bpm, XLKQ=360/48 mmhg, SpO2=96.0 %, Resp=13 B/min 12:40 PM Balloon inflated @ 16 anabel for 10 seconds tsites 12:41 PM Balloon inflated @ 16 anabel for 5 seconds tsites 12:42 PM Balloon inflated @ 6 anabel for 7 seconds tsites 12:43 PM Balloon inflated @ 6 anabel for 7 seconds tsites 12:44 PM Balloon inflated @ 12 anabel for 10 seconds tsites 12:44 PM Balloon inflated @ 20 anabel for 16 seconds tsites 12:45 PM HR=60 bpm, HACQ=131/64 mmhg, SpO2=95.0 %, Resp=15 B/min 12:46 PM Balloon catheter removed intact. tsites 12:46 PM Guide wire removed intact. tsites 12:46 PM Guide catheter removed intact. tsites 12:47 PM Procedure completed at 12:47 04/12/2019 tsites 12:47 PM Did you address CARLOS A flow and Dominance? YesCoronary Dominance: right tsites 12:48 PM Coronary Dominance: right tsites 12:49 PM Sign out completed: Radiation Dose 1250 mGy, 138 Gy/cm2 Fluoro Time: 12.7 Isovue 370 - 200ml contrast 254 ml given by Silke Foreman MD. Complications: None. 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 Sedation minutes 54. Cardiac Rehab Consult needed: Yes. Confirmed administered medications: Yes tsites 12:50 PM Arterial sheath pulled, Angio-seal closure device used and was Successful [id number] S/N. tsites 12:50 PM Time: 12:50 Plavix 75 mg Orally Given by Tamara Franco RN tsites 12:51 PM Estimated Blood Loss: less than 20cc tsites 12:51 PM Post ECG NSR tsites 12:51 PM Post Blood Pressure 112/66 tsites 12:51 PM 12:51 Post Pulses Bilateral DP & PT 1+ tsites 12:51 PM Information taught Cardiac Cath, PCI, and Angioseal tsites 12:51 PM Education needs Procedure, Plan of Care, and Responsibilities of Patient in Care tsites 12:51 PM Learning barriers :None tsites 12:51 PM Education Methods Verbal tsites 12:51 PM Education evaluation Able to repeat information tsites 12:52 PM Site status No bleeding/hematoma - Rt Groin as reported by Cindy Roberson RT (R) at 12:51 tsites 12:52 PM Opsite applied tsites 12:52 PM Plavix, Effient or Brilinta given Yes tsites 12:52 PM Delay to floor No tsites 12:52 PM Patient out of room: 12:52 tsites 12:52 PM Family placed in consult room. tsites 12:53 PM Report given to hailee PHILLIPS Pt taken to 3B Room #45. 12:52 tsites Complications Complication None Hemodynamics Pressures Site Systolic/A Wave Diastolic/V Wave Mean AO 119 81 98 AO 108 83 96 LV 108 16 18 LV 101 8 15 AO 101 72 86 AO 93 66 79 AO 96 70 83 PV1 88 87 70 AO 108 66 84 PV1 82 82 67 Post Procedure Information Blood Pressure: 112/66 mmHg Rhythm: NSR Post procedural instructions were given Closure Device Time Device Success/Fail 04/12/2019 12:56:00 PM Angio-Seal VIP Successful Site Checks Time Location Status Staff Sheath In? Note 12:51 PM Rt Groin No bleeding/hematoma Mik Roberson RT (R) Pulses Time Site Pre-Procedure Post-Procedure Note Bilateral DP & PT 1+ 12:51:00 PM Bilateral DP & PT 1+ Updated by James Newman RN on 04/12/2019 1:06:26 PM Cindy Kaplan, RT electronically signed on 04/12/2019 1:07:00 PM with status of Final
[2019-04-12] MEDS ORDERED: *HR* OxyCODONE/APAP 5/325 TABLET PO PRN (14:07)
--- NOTE | 2019-04-12 16:15 | Event Note ---
Date of Encounter: 04/12/19 Time of Encounter: 12:00 Ms. Keenan is 43 y/o F with known past medical history of hypertension, hyperlipidemia, morbid obesity and CAD with status post PCI pt who recently had abnormal stress test presented to ER with chest pain. Patient denied active chest pain now. 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 Her initial troponin came back as negative. Pt was evaluated by cardiology and scheduled for left heart catheterization today. Gen: Alert, awake, Oriented to time,place and person Chest: Diminished breath sounds B/L, No wheezing, No crackles, No rales Heart: S1S2+ RRR No murmurs Abd: Soft, NT, BS +, No organomegaly Ext: No edema, pulses are palpable, No calf tenderness Neuro : No acute focal neuro deficits noticed Skin: No rash. a/p 1. Acute CP 2. Abnormal stress test 3. CAD s/p PCI cont ASA, Plavix, Lipitor, Imdur, Coreg and Lisinopril
[2019-04-13 03:53] LABS: Hemoglobin 13.1 g/dL (11.5-15.4)
[2019-04-13 04:03] LABS: BUN/Creatinine Ratio 17 (6-26); Blood Urea Nitrogen 11 mg/dL (6-20); eGFR For African Americans > 60 (> 60); eGFR For Non-African Americans > 60 (> 60)
[2019-04-13] MEDS: Insulin LISPRO 300 UNITS/3 ML VIAL SQ SCH ×2 (06:04)
[2019-04-13] MEDS: *HR* Heparin 5,000 UNIT/ML VIAL SQ SCH (06:07)
[2019-04-13 08:00] VITALS: BP 125/84
--- NOTE | 2019-04-13 08:22 | Cardiology Progress Note ---
Date of Encounter: 04/13/19 Time of Encounter: 08:20 Assessment and Plan (1) Chest pain Current Visit: No Status: Acute Per Cardiology: Troponins negative 5. Chest pain now resolved. Qualifiers: Chest pain type: unspecified Qualified Code(s): R07.9 - Chest pain, unspecified (2) Positive cardiac stress test Current Visit: No Status: Acute Per Cardiology: Non-exercise nuclear chest test perfusion imaging was positive for ischemia 04/08/2019. Determined to be intermediate risk stress test. S/P LHC: Impressions: There is severe two vessel coronary artery disease. Patient had successful PTCA in the mid LAD. Patient had successful PTCA/Drug-Eluting Stent placement in the distal Circ. FFR Measurement: 0.76 LAD Lesion Findings/Interventions * Left Main Coronary Artery The LMCA is angiographically free of disease. * Left Anterior Descending There is a 20 mm long, 60% in stent restenosis in the Mid LAD. The lesion has a CARLOS A flow of 3 and has no thrombus present. An intervention was performed on the Mid LAD with a final stenosis of 0%. There were no lesion complications. The final CARLOS A flow was 3. * Circumflex The 1st Marginal has patent stents present from a previous procedure. There is a 16 mm long, 70% stenosis in the Distal Circumflex. The lesion has a CARLOS A flow of 2 and has no thrombus present. An intervention was performed on the Distal Circumflex with a final stenosis of 0%. There were no lesion complications. The final CARLOS A flow was 3. * Right Coronary Artery There is a 95% stenosis in the Proximal RCA. There is a 100% stenosis in the Mid RCA. Post procedure education provided. Dual antiplatelet therapy reinforced. Cardiology signing off, reconsult as needed, follow-up arranged. 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 Underwent stenting at [facility] March 2017. On asa. plavix, stain, BB, ACEI, Imdur. Qualifiers: Coronary Disease-Associated Artery/Lesion type: [place] artery [place] vs. transplanted heart: [place] heart Associated angina: with stable angina Qualified Code(s): I25.118 - Atherosclerotic heart disease of [place] coronary artery with other forms of angina pectoris (4) Tobacco use Current Visit: No Status: Chronic Per Cardiology: I did spend 3-5 minutes today providing smoking cessation counseling. Patient reports success with Chantix in the past. Patient contemplating quitting again. Discussion w patient/family: The assessment and plan as outlined above was discussed with the patient and/or family members who expressed understanding and agreement. All questions were answered. Thank you for involving us in the care of your patient. Please call with any questions. Subjective Principal diagnosis: CP, +ST, CAD Interval history: Denies any chest pain this morning. Denies any new concerns or complaints. Denies any concerns regarding right groin site. Objective Vital Signs, Last 4 Hours Temp Pulse Resp BP Pulse Ox 04/13/19 07:51 97.8 F 67 16 125/84 95 General: Conversant, No Apparent Distress HEENT: Atraumatic, Normocephaly, Mucus Membranes Moist Neck: No JVD, Normal carotid pulses Cardiac: Reg Rate and Rhythm, Normal S1 and S2, No Murmur Lungs: Normal Breath Sounds, No Wheeze, Rales, Rhonchi Neuro: Alert and responsive, No focal deficits noted Abdomen: Soft, Non-Tender Skin: No rashes noted on visualized skin, Other (Right groin site trying intact, no hematoma, no bleeding, no ecchymosis, right PT and DP pulses 1+ palpable) Musculoskeletal: No Chest Wall Tenderness Extremities: No Clubbing, No Cyanosis, No Edema, Normal Pulses Results 04/13/19 02:49 04/13/19 02:49 Lab Results Laboratory Tests 04/11/19 04/12/19 04/13/19 22:00 10:03 02:49 Hgb 13.1 Hct 41.0 Creatinine Est GFR (Non-Af Amer) Troponin I < 0.03 Serum , Qual Negative 04/13/19 02:49 Hgb Hct Creatinine 0.64 Est GFR (Non-Af Amer) > 60 Troponin I Serum , Qual Active Medications Amitriptyline HCl (Elavil) 25 mg PO HS [facility] Stop: 10/12/19 01:31 Last Admin: 04/12/19 20:35 Dose: 25 mg Documented by: Aspirin (Aspirin Ec) 81 mg PO DAILY [facility] Stop: 10/12/19 09:01 Last Admin: 04/12/19 09:05 Dose: 81 mg Documented by: Atorvastatin Calcium (Lipitor) 40 mg PO HS [facility] Stop: 10/12/19 01:31 Last Admin: 04/12/19 20:35 Dose: 40 mg Documented by: Carvedilol (Coreg) 25 mg PO BID [facility]; Protocol Stop: 10/12/19 09:01 Last Admin: 04/12/19 20:35 Dose: 25 mg Documented by: Citalopram Hydrobromide (Celexa) 40 mg PO DAILY [facility] Stop: 10/12/19 09:01 Last Admin: 04/12/19 09:05 Dose: 40 mg Documented by: Clopidogrel Bisulfate (Plavix) 75 mg PO DAILY [facility] Stop: 10/12/19 09:01 Last Admin: 04/12/19 09:04 Dose: 75 mg Documented by: Dextrose/Water (Dextrose 50% (Syg)) 25 ml IVP AD PRN PRN Reason: Hypoglycemia Stop: 10/12/19 04:37 Glucagon (Glucagen) 1 mg IM ONCE PRN PRN Reason: Hypoglycemia Stop: 10/12/19 04:45 Glucose (Gluctose) 15 gm PO ONCE PRN PRN Reason: Hypoglycemia Stop: 10/12/19 04:37 Glucose (Gluctose) 30 gm PO ONCE PRN PRN Reason: Hypoglycemia Stop: 10/12/19 04:37 Heparin Sodium (Porcine) (Heparin) 5,000 unit SQ Q12HCO [facility] Stop: 10/12/19 06:01 Last Admin: 04/13/19 06:07 Dose: 5,000 unit Documented by: Dextrose (Dextrose 5%) 1,000 mls @ 100 mls/hr IVC .Q10H PRN PRN Reason: HYPOGLYCEMIA Stop: 10/12/19 04:45 Insulin Human Lispro (Humalog) 0 units SQ Q6HR [facility]; Protocol Stop: 10/12/19 06:01 Last Admin: 04/13/19 06:04 Dose: Not Given Documented by: Isosorbide Mononitrate (Imdur) 15 mg PO DAILY [facility] Stop: 10/12/19 09:01 Last Admin: 04/12/19 09:04 Dose: 15 mg Documented by: Lisinopril (Zestril) 10 mg PO DAILY [facility]; Protocol Stop: 10/12/19 09:01 Last Admin: 04/12/19 09:05 Dose: 10 mg Documented by: Nitroglycerin (Nitroglycerin) 0.4 mg SL Q5MPRN PRN PRN Reason: Chest Pain Stop: 10/12/19 01:17 Last Admin: 04/12/19 10:07 Dose: 0.4 mg Documented by: Oxycodone/Acetaminophen (Percocet 5/325) 1 each PO Q6HR PRN PRN Reason: Pain Stop: 10/12/19 14:08 Last Admin: 04/12/19 14:54 Dose: 1 each Documented by: - Imaging and Cardiology Cardiac cath: report reviewed Consult Discharge Plan - Plan Referrals: Heri Harrison MD [Primary Care Provider] - 04/19/19 1:15 pm
[2019-04-13] MEDS: Aspirin Enteric Coated 81 MG Tablet PO SCH (08:49)
[2019-04-13] MEDS: Isosorbide MONOnitrate (24 HR) 30 MG TAB.ER.24H PO SCH (08:50)
--- NOTE | 2019-04-13 11:20 | Electrocardiograph Report ---
[address] [address] Test Date: 2019-04-09 Pat Name: Zahira Keenan Department: [id number] Room: 3B45 Gender: F Ward Secretary: : 1975 Requested By: Beny Manning Order Number: [id number] Reading MD: Raysa See Measurements Intervals [place] Rate: 72 P: 43 AK: 132 QRS: -24 QRSD: 103 T: 67 QT: 406 QTc: 445 Interpretive Statements Sinus rhythm Borderline left axis deviation Electronically Signed On 04-13-2019 11:19:15 EDT by Raysa See
--- NOTE | 2019-04-13 11:38 | Discharge Summary ---
- NOTES TO OUTPATIENT PROVIDER Notes to Outpatient Provider: Follow up with PCP in one week. f/u with Cardiology as scheduled. Orders not resulted at time of discharge: Pending orders 04/12/19 12:55 ECG 12 lead ECG [ECG] Stat 04/13/19 06:00 ECG 12 lead ECG [ECG] AM 0600 Date of Encounter: 04/13/19 Time of Encounter: 11:34 - Discharge Diagnosis (1) Chest pain Priority: Primary Status: Acute Qualifiers: Chest pain type: unspecified Qualified Code(s): R07.9 - Chest pain, unspecified (2) Positive cardiac stress test Priority: Primary Status: Acute (3) Coronary artery disease Priority: Secondary Status: Chronic Qualifiers: Coronary Disease-Associated Artery/Lesion type: [place] artery [place] vs. transplanted heart: [place] heart Associated angina: with stable angina Qualified Code(s): I25.118 - Atherosclerotic heart disease of [place] coronary artery with other forms of angina pectoris (4) Diabetes mellitus Priority: Secondary Status: Chronic Qualifiers: Diabetes mellitus type: type 2 Diabetes mellitus correction insulin use: with oil heaterman use Diabetes mellitus complication status: with other specified complication Qualified Code(s): E11.69 - Type 2 diabetes mellitus with other specified complication; Z79.4 - snf (current) use of insulin (5) Hyperlipidemia Priority: Secondary Status: Chronic Qualifiers: Hyperlipidemia type: unspecified Qualified Code(s): E78.5 - Hyperlipidemia, unspecified (6) Hypertension Priority: Secondary Status: Chronic Qualifiers: Hypertension type: essential hypertension Qualified Code(s): I10 - Essential (primary) hypertension (7) Morbid obesity with BMI of 40.0-44.9, adult Priority: Secondary Status: Chronic (8) Tobacco use Priority: Secondary Status: Chronic (9) DVT prophylaxis Priority: Secondary Status: Acute Hospital course: Ms. Keenan is 43 y/o F with known past medical history of hypertension, hyperlipidemia, morbid obesity and CAD with status post PCI pt who recently had abnormal stress test presented to ER with chest pain. She was admitted in the hospital and placed her on cardiac nurse specialist. Her serial troponin were negative. She did go for LHC y/d which showed severe two vessel coronary artery disease. She had successful PTCA in the mid LAD and had successful PTCA/Drug-Eluting Stent placement in the distal Circ. Recommend to continue ASA, Plavix, Coreg, Lipitor and ACEI. I did counseling director the pt to quit smoking. She wanted to try Chantix through PCP office. - Time Spent with Patient Total time spent providing and/or coordinating discharge services: - Discharge Medications Prescriptions: Continued Carvedilol [Coreg] 25 mg PO BID Clopidogrel [Plavix] 75 mg PO QAM Nitroglycerin [Nitrostat] 0.4 mg SL Q5M PRN PRN Reason: Chest Pain Atorvastatin [Lipitor] 40 mg PO HS Citalopram [CeleXA] 40 mg PO QPM Amitriptyline [Elavil] 25 mg PO HS Insulin NPH Hum/Reg Insulin Hm [Novolin 70-30 100 Unit/ml Vial] 30 unit SQ BID Lisinopril [Zestril] 10 mg PO QAM Dulaglutide [Trulicity] 0.75 mg SQ SA Isosorbide MONOnitrate (24 HR) [Imdur] 15 mg PO DAILY #30 tab.er.24h Aspirin [Adult Aspirin] 81 mg PO QPM Acetaminophen/Diphenhydramine [Acetaminophen Pm Caplet] 1 tab PO HS PRN PRN Reason: Sleep Home Medications: Atorvastatin [Lipitor] 40 mg PO HS 01/10/17 [History] Carvedilol [Coreg] 25 mg PO BID 01/10/17 [History] Clopidogrel [Plavix] 75 mg PO QAM 01/10/17 [History] Nitroglycerin [Nitrostat] 0.4 mg SL Q5M PRN 01/10/17 [History] Amitriptyline [Elavil] 25 mg PO HS 02/09/18 [History] Citalopram [CeleXA] 40 mg PO QPM 02/09/18 [History] Insulin NPH Hum/Reg Insulin Hm [Novolin 70-30 100 Unit/ml Vial] 30 unit SQ BID 02/09/18 [History] Lisinopril [Zestril] 10 mg PO QAM 02/09/18 [History] Dulaglutide [Trulicity] 0.75 mg SQ SA 01/14/19 [History] Isosorbide MONOnitrate (24 HR) [Imdur] 15 mg PO DAILY #30 tab.er.24h 04/09/19 [Rx] Aspirin [Adult Aspirin] 81 mg PO QPM 04/12/19 [History] Acetaminophen/Diphenhydramine [Acetaminophen Pm Caplet] 1 tab PO HS PRN 04/13/19 [History] Allergies/Adverse Reactions: Allergy/AdvReac Type Severity Reaction Status Date / Time hydrocodone [From Vicodin] Allergy Itching Verified 04/13/19 10:02 Sulfa (Sulfonamide Allergy Hives Verified 04/13/19 10:02 Antibiotics) metformin AdvReac Diarrhea Verified 04/13/19 10:02 Date of admission: 04/12/19 00:07 Primary care physician: Heri Harrison MD Consults: 04/11/19 21:17 Consult to Cardiology [CONS] Stat Comment: Consulting Provider: Cardiology Krissy Reason for Consult: heart cath Call Completed: Yes 04/12/19 12:55 Consult to Cardiac Rehabilitation-Phase1 [CONS] Routine Comment: Reason for Consult: post op PCI Call Completed: Yes - Constitutional Vitals: Temp Pulse Resp BP Pulse Ox 97.8 F 67 16 125/84 95 04/13/19 07:51 04/13/19 07:51 04/13/19 07:51 04/13/19 07:51 04/13/19 07:51 General appearance: Present: A&O X 3, no acute distress, answers questions appropriately Exam: Gen: Alert, awake, Oriented to time,place and person Chest: Diminished breath sounds B/L, No wheezing, No crackles, No rales Heart: S1S2+ RRR No murmurs Abd: Soft, NT, BS +, No organomegaly Ext: No edema, pulses are palpable, No calf tenderness Neuro : No acute focal neuro deficits noticed Skin: No rash. - Patient Status Disposition: Home, Self-Care Condition: Good Overall status at discharge: patient is back to baseline - Discharge Instructions Follow Up With: Heri Harrison MD [Primary Care Provider] - 04/19/19 1:15 pm Forms: ED Satisfaction Letter - Diet and Activity Activity: increase activity as tolerated Diet: low salt diet
--- NOTE | 2019-04-15 11:32 | Electrocardiograph Report ---
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
== END 2019-04-13 12:12 | disposition home or self-care (01) ==
LOC: EMEROOARM 20:58 → 3BNU 20:58 → SUATTDRO 04-12 00:07 → 3BNU 04-12 01:09
PROVIDERS: ADMIT Internal Medicine; ATTEND Family Medicine

== ENCOUNTER 2019-05-24 08:53 | Observation (INO) ==
[2019-05-24 09:25] LABS: Basophils # 0.1 K/mcL (0.0-0.2); Basophils % 0.7 %; Eosinophils # 0.2 K/mcL (0.0-0.6); Eosinophils % 3.2 %; Hemoglobin 14.4 g/dL (11.5-15.4); Immature Granulocytes % 0.6 % (0-4); Lymphocytes # 1.9 K/mcL (0.6-4.6); Lymphocytes % 27.2 %; Mean Corpuscular HGB Conc 32.7 g/dL (31.6-35.5); Mean Corpuscular Hemoglobin 27.9 pg (28.0-33.3); Mean Corpuscular Volume 85.1 fL (83.0-100.0); Mean Platelet Volume 9.7 fL (9.4-12.4); Monocytes # 0.6 K/mcL (0.0-1.3); Monocytes % 9.2 %; Platelet Count 239 K/mcL (140-400); Red Blood Count 5.17 M/mcL (3.82-4.97); Red Cell Distribution Width 13.9 % (11.5-14.5); Segmented Neutrophils % 59.1 %; White Blood Count 6.8 K/mcL (4.3-11.1)
[2019-05-24 09:32] LABS: INR 0.9; Prothrombin Time 10.2 Seconds (9.4-12.1)
[2019-05-24 09:35] LABS: Activated Partial Thrombo Time 32.2 Seconds (26.0-36.0)
[2019-05-24] MEDS ORDERED: Nitroglycerin 1 INCH/GM PACKET TP ONE (09:45)
[2019-05-24 09:47] LABS: BUN/Creatinine Ratio 16 (6-26); Blood Urea Nitrogen 10 mg/dL (6-20); Calcium 8.8 mg/dL (8.6-10.3); Carbon Dioxide 25 mEq/L (23-29); Chloride 105 mEq/L (98-107); Glucose 163 mg/dL (70-105); Osmolality,Calculated 283 (280-300); Potassium 4.3 mEq/L (3.5-5.1); Sodium 135 mEq/L (136-145); Troponin I < 0.03 ng/mL (< 0.04); eGFR For African Americans > 60 (> 60); eGFR For Non-African Americans > 60 (> 60)
--- NOTE | 2019-05-24 09:47 | Emergency Department Note ---
Disposition Clinical Impression: Chest pain Disposition: Admitted As Inpatient Referrals: Heri Harrison MD [Primary Care Provider] - Forms: ED Satisfaction Letter Time of Disposition: 11:23 Chest Pain HPI - General Chief Complaint: ED Chest Pain Stated Complaint: CP,GRANT,nausea Time Seen by Provider: 05/24/19 08:56 Source: patient Limitations: no limitations - History of Present Illness HPI Narrative: Patient is a 43-year-old female presents to the emergency room with complaint of chest pain started about 745 also was getting ready for work. The patient states the pain is centrally located raised her left shoulder area. The patient denies any focal weakness or numbness. The patient states the pain started suddenly similar to previous heart events. The patient became somewhat anderson apparently. She did also become nauseated she did not vomit. Patient states that she did take full dose aspirin this morning, the patient also took nitroglycerin 2 tablets. The patient states the pain is down to a 4 now. Patient denies any fevers or chills. The patient denies any severe shortness of breath or abdominal pain. The patient denies any focal weakness or numbness. Nothing else makes symptoms better except for the nitroglycerin, nothing makes symptoms worse. The patient states that she did have a cardiac catheterization about 6 weeks ago. Severity scale (1-10): 7 - Related Data Home Medications Medication Instructions Recorded Confirmed Atorvastatin [Lipitor] 40 mg PO HS 01/10/17 05/24/19 Carvedilol [Coreg] 25 mg PO BID 01/10/17 05/24/19 Clopidogrel [Plavix] 75 mg PO QAM 01/10/17 05/24/19 Nitroglycerin [Nitrostat] 0.4 mg SL Q5M PRN 01/10/17 05/24/19 Amitriptyline [Elavil] 25 mg PO HS 02/09/18 05/24/19 Citalopram [CeleXA] 40 mg PO QPM 02/09/18 05/24/19 Insulin NPH Hum/Reg Insulin Hm 30 unit SQ BID 02/09/18 05/24/19 [Novolin 70-30 100 Unit/ml Vial] Lisinopril [Zestril] 10 mg PO QAM 02/09/18 05/24/19 Dulaglutide [Trulicity] 0.75 mg SQ SA 01/14/19 05/24/19 Aspirin [Adult Aspirin] 81 mg PO QPM 04/12/19 05/24/19 Acetaminophen/Diphenhydramine 1 tab PO HS PRN 04/13/19 05/24/19 [Acetaminophen Pm Caplet] Isosorbide MONOnitrate (24 HR) 60 mg PO DAILY 05/24/19 05/24/19 [Imdur] Allergies Allergy/AdvReac Type Severity Reaction Status Date / Time hydrocodone [From Vicodin] Allergy Itching Verified 05/24/19 09:13 Sulfa (Sulfonamide Allergy Hives Verified 05/24/19 09:13 Antibiotics) metformin AdvReac Diarrhea Verified 05/24/19 09:13 Review of Systems: As mentioned per history of present illness and as follows. Constitutional: Negative for chills or fever HENT: Negative for sore throat. Eyes: Negative for visual disturbance Respiratory: Negative for shortness of breath. Cardiovascular: Negative for palpitations. Gastrointestinal: Negative for abdominal pain Genitourinary: Negative for dysuria Musculoskeletal: Negative for back pain. Skin: Negative for rash. Neurological: Negative for focal weakness Psychiatric/Behavioral: Negative for depression Chest Pain PMH - Past Medical History Medical history: Reports: coronary artery disease, diabetes, hyperlipidemia, hypertension, migraine, myocardial infarction, other Surgical history: Reports: cholecystectomy Psychiatric history: Reports: anxiety, depression DOCKET SPECIALIST history: Reports: polycystic ovary syndrome - Social History Smoking Status: Current every day smoker Alcohol use: Reports: none Drug use: Reports: none Physical Exam PHYSICAL EXAM Constitutional: Well developed, Well nourished, No acute distress, Non-toxic appearance. HENT: Normocephalic, Atraumatic, Bilateral external ears normal, Oropharynx moist, No oral exudates, Nose normal. Neck- Normal range of motion, No tenderness, Supple. Eyes: PERRL, EOMI, Conjunctiva normal,. Cardiovascular: Regular rate and rhythm without clicks, rubs, gallops or murmurs. Respiratory: Normal breath sounds, No respiratory distress, No wheezing, rhonch i, or crackles. GI: Soft, nontender, no evidence of guarding or peritoneal signs. Bowel sounds are active. Musculoskeletal: Good range of motion in all major joints. No tenderness to palpation or major deformities noted. +5/5 strength noted to all extremities. Integument: Warm, Dry, No erythema, No rash. No edema. Neurologic: Alert & oriented x 3, Normal sensory function, No focal deficits noted. CN II-XII grossly intact. - General Limitations: no limitations General appearance: alert, in no apparent distress Course Vital Signs Temperature 98.8 F 05/24/19 09:05 Pulse Rate 64 05/24/19 09:05 Respiratory Rate 14 05/24/19 09:05 Blood Pressure 125/82 05/24/19 09:05 O2 Sat by Pulse Oximetry 98 05/24/19 09:05 Temperature 98.8 F 05/24/19 09:05 Pulse Rate 63 05/24/19 11:00 Respiratory Rate 16 05/24/19 11:00 Blood Pressure 95/65 05/24/19 11:00 O2 Sat by Pulse Oximetry 97 05/24/19 11:00 Oxygen Delivery Oxygen Delivery Room Air Chest Pain - MDM Narrative Medical decision making narrative: EKG was performed that showed evidence of sinus rhythm 62 beats a minute, left axis deviation noted. No other evidence of ST elevation or depression noted. MD and QT intervals are within normal limits. Interpreted by myself. Patient has negative workup here in the emergency room, case was discussed with the cardiology team, they have agreed to see the patient in the hospital. Given the patient's high risk the patient is going to be admitted, case was discussed with the hospitalist in full detail and the patient will be admitted in stable condition. Patient do not believe has any evidence of pulmonary embolism, she is not hypoxic or tachycardic. The patient at this time was recommended to discontinue smoking. The patient at this point in time is going to be admitted in stable condition. Patient did have nitroglycerin paste applied. The patient already taken a full dose aspirin prior to arrival. Final impression 1. Chest pain precordial - Lab Data Result diagrams: 05/24/19 09:13 05/24/19 09:13 Lab Results 05/24/19 05/24/19 05/24/19 Range/Units 09:13 09:13 09:13 WBC 6.8 (4.3-11.1) K/mcL RBC 5.17 H (3.82-4.97) M/mcL Hgb 14.4 (11.5-15.4) g/dL Hct 44.0 (35.3-44.9) % MCV 85.1 (83.0-100.0) fL MCH 27.9 L (28.0-33.3) pg MCHC 32.7 (31.6-35.5) g/dL RDW 13.9 (11.5-14.5) % Plt Count 239 (140-400) K/mcL MPV 9.7 (9.4-12.4) fL Immature Gran % 0.6 (0-4) % Seg Neutrophils % 59.1 % Lymphocytes % 27.2 % Monocytes % 9.2 % Eosinophils % 3.2 % Basophils % 0.7 % Neutrophils # 4.0 (1.6-8.9) K/mcL Lymphocytes # 1.9 (0.6-4.6) K/mcL Monocytes # 0.6 (0.0-1.3) K/mcL Eosinophils # 0.2 (0.0-0.6) K/mcL Basophils # 0.1 (0.0-0.2) K/mcL PT 10.2 (9.4-12.1) Seconds INR 0.9 APTT 32.2 (26.0-36.0) Seconds Sodium 135 L (136-145) mEq/L Potassium 4.3 (3.5-5.1) mEq/L Chloride 105 (98-107) mEq/L Carbon Dioxide 25 (23-29) mEq/L BUN 10 (6-20) mg/dL Creatinine 0.61 (0.60-1.20) mg/dL Est GFR ( Amer) > 60 (> 60) Est GFR (Non-Af Amer) > 60 (> 60) BUN/Creatinine Ratio 16 (6-26) Glucose 163 H (70-105) mg/dL Calculated Osmolality 283 (280-300) Calcium 8.8 (8.6-10.3) mg/dL Troponin I < 0.03 (< 0.04) ng/mL
--- NOTE | 2019-05-24 13:19 | Cardiology Consult Note ---
<Kassie Valencia - Last Filed: 05/24/19 13:14> Date of Encounter: 05/24/19 Time of Encounter: 11:15 Assessment and Plan (1) Chest pain Current Visit: Yes Status: Acute Per cardiology: -Admitted with typical chest pain symptoms. -Denies current chest pain -Troponin negative x1. -No acute ECG changes. -Recent [facility], see below. -TTE 05/20/19 with LVEF 60%, RV mildly dilated with normal function, no segmental wall motion abnormalities noted. -On asa, statin, BB, plavix, imdur at home. -Continue to trend troponins. -Continue home medications. -Will add ranexa for chest pain. 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 -ON asa, plavix, statin, BB, imdur. -Continue home medications. -Continue dual anti-platelet therapy uninterrupted for at least one year, states understanding. -Will add ranexa as above. Qualifiers: Coronary Disease-Associated Artery/Lesion type: [place] artery [place] vs. transplanted heart: [place] heart Associated angina: with stable angina Qualified Code(s): I25.118 - Atherosclerotic heart disease of [place] coronary artery with other forms of angina pectoris Discussion w patient/family: The assessment and plan as outlined above was discussed with the patient and/or family members who expressed understanding and agreement. All questions were answered. Thank you for involving us in the care of your patient. Please call with any questions. Discussed and reviewed with . History of Present Illness Consult date: 05/24/19 Requesting physician: Tony Horner Consult reason: chest pain Chief complaint: chest pain History of present illness: Ms. Keenan is a 43 year old female with a relevant past medical history of CAD s/p multiple PCI, MA, DM, HTN, HLD, anxiety, depression, PCOS, pituitary adenoma, obesity, who presented to [facility] with complaints of chest pain. Patient states she was up walking, taking the dogs outside today, when she had sudden onset of chest pain that radiated down her left arm. Patient reports associated nausea, diaphoresis, and shortness of breath. Patient states similar to previous angina. Patient states she took 2 nitro and chest pain lessened, however did not resolve so she decided to seek medical attention. Patient denies current chest pain. Past Med Surg Social Fam HX - Past Medical History Attestation: Yes The following information was validated with the patient. Source: patient, old records reviewed Medical history: coronary artery disease, diabetes, hyperlipidemia, hypertensi on, migraine, myocardial infarction, other Additional medical history: PCOS. pituitary adenoma. ulcer of left foot Psychiatric history: anxiety, depression - Past Surgical History Surgical History: cholecystectomy Additional surgical history: cath no stents. stent placement at [place] 1 stent. right elbow surgery. stents bruin 3 stents - Social History Smoking Status: Current every day smoker Packs per day: 1/2 Smokeless Tobacco Status: No Alcohol use: none Drug use: none - Family History Mother Adopted: No Family Member Ethnicity: Non- Living Status: Still Living Hx Family Cardiac Disorders: Yes (HTN) Hx Family Respiratory Disorders: No Hx Family Cancer: No Hx Family GI Disorders: No Hx Family Endocrine Disorder: Yes (DM) Hx Family Neuromuscular Disorders: No Hx Family Neurologic Disorders: No Hx Family HEENT Disorders: No Hx Family Autoimmune Disorders: No Maternal Grandmother Hx Family Cardiac Disorders: Yes (CHF, HTN) Hx Family Endocrine Disorder: Yes (DM) Medications and Allergies Atorvastatin [Lipitor] 40 mg PO HS 01/10/17 [History] Carvedilol [Coreg] 25 mg PO BID 01/10/17 [History] Clopidogrel [Plavix] 75 mg PO QAM 01/10/17 [History] Nitroglycerin [Nitrostat] 0.4 mg SL Q5M PRN 01/10/17 [History] Amitriptyline [Elavil] 25 mg PO HS 02/09/18 [History] Citalopram [CeleXA] 40 mg PO QPM 02/09/18 [History] Insulin NPH Hum/Reg Insulin Hm [Novolin 70-30 100 Unit/ml Vial] 30 unit SQ BID 02/09/18 [History] Lisinopril [Zestril] 10 mg PO QAM 02/09/18 [History] Dulaglutide [Trulicity] 0.75 mg SQ SA 01/14/19 [History] Aspirin [Adult Aspirin] 81 mg PO QPM 04/12/19 [History] Acetaminophen/Diphenhydramine [Acetaminophen Pm Caplet] 1 tab PO HS PRN 04/13/19 [History] Isosorbide MONOnitrate (24 HR) [Imdur] 60 mg PO DAILY 05/24/19 [History] Allergy/AdvReac Type Severity Reaction Status Date / Time hydrocodone [From Vicodin] Allergy Itching Verified 05/24/19 09:13 Sulfa (Sulfonamide Allergy Hives Verified 05/24/19 09:13 Antibiotics) metformin AdvReac Diarrhea Verified 05/24/19 09:13 All Systems Review: The remainder of the systems were reviewed and are negative - Cardiovascular Cardiovascular: as per HPI, chest pain with exertion, diaphoresis, dyspnea on exertion, radiating jaw, neck or arm pain Physical Examination Vital Signs, Last 4 Hours Pulse Resp BP Pulse Ox 05/24/19 11:33 14 107/72 05/24/19 11:00 63 16 95/65 97 05/24/19 10:30 64 16 93/53 97 05/24/19 10:00 61 16 106/71 96 05/24/19 09:30 64 14 116/67 98 05/24/19 09:15 121/76 General: Conversant, No Apparent Distress HEENT: Atraumatic, Normocephaly, Mucus Membranes Moist Neck: No JVD, Normal carotid pulses Cardiac: Reg Rate and Rhythm, Normal S1 and S2, No Murmur Lungs: Normal Breath Sounds, No Wheeze, Rales, Rhonchi Neuro: Alert and responsive, No focal deficits noted Abdomen: Soft, Non-Tender Skin: No rashes noted on visualized skin Musculoskeletal: No Chest Wall Tenderness Extremities: No Clubbing, No Cyanosis, No Edema, Normal Pulses Results 05/24/19 09:13 05/24/19 09:13 Lab Results Impressions Chest X-Ray 05/24/19 08:57 IMPRESSION: No acute cardiopulmonary process identified. D/ / Lexa De Leon MD / Lexa De Leon MD Interpreting Provider: Lexa De Leon MD Active Medications Ranolazine (Ranexa) 500 mg PO BID CLAUDIA Stop: 11/23/19 21:01 Laboratory Tests 05/24/19 09:13 Troponin I < 0.03 - Imaging and Cardiology Chest Xray: report reviewed Stress Test: report reviewed Echo: report reviewed Cardiac cath: report reviewed - EKG Interpretation EKG results cardiology: personally reviewed (ECG with SR, HR 62.) Consult Discharge Plan - Plan Referrals: Heri Harrison MD [Primary Care Provider] - <[email or web address] - Last Filed: 05/24/19 15:37> Date of Encounter: 05/24/19 - Attending Attestation I examined this patient and my medical decision-making was reviewed with the SUPERVISOR STATEMENT CLERKS. I agree with the documented findings, disposition and treatment plan as described. Assessment and Plan Discussion w patient/family: The assessment and plan as outlined above was discussed with the patient and/or family members who expressed understanding and agreement. All questions were answered. Thank you for involving us in the care of your patient. Please call with any questions. History of Present Illness History of present illness: Ms. Keenan is a 43 year old female All Systems Review: The remainder of the systems were reviewed and are negative Physical Examination Vital Signs, Last 4 Hours Temp Pulse Resp BP Pulse Ox 05/24/19 15:24 98.2 F 67 16 95/60 93 05/24/19 13:13 97.6 F 62 16 105/61 92 Results 05/24/19 09:13 05/24/19 09:13 Lab Results 05/24/19 05/24/19 05/24/19 09:13 09:13 09:13 WBC 6.8 Hgb 14.4 Hct 44.0 Plt Count 239 INR 0.9 APTT 32.2 Sodium 135 L Potassium 4.3 Chloride 105 Carbon Dioxide 25 BUN 10 Creatinine 0.61 Glucose 163 H Calcium 8.8 Troponin I < 0.03
--- NOTE | 2019-05-24 14:45 | Internal Med History&Physical ---
Date of Encounter: 05/25/19 Time of Encounter: 14:37 Internal Medicine - H&P: HPI History of present illness: Ms. Keenan is a 43 year old female with past medical history of coronary artery disease, diabetes, hyperlipidemia, hypertension, migraine, myocardial infarction, status post cardiac catheterization as well as stent placement 6 weeks ago who presented to the emergency room with acute onset of chest pain located in the mid chest radiating to her left shoulder and left arm, the patient took aspirin as well as nitroglycerin with some improvement. The patient denies diaphoresis, nausea, palpitation, orthopnea, paroxysmal nocturnal dyspnea or worsening of lower extremity edema. EKG was obtained and revealed no significant ST-T wave to changes cardiac enzymes first set was was no si gnificant abnormalities the patient was admitted for further evaluation and management. Cardiology was consulted by the ER staff and they saw the patient in the ER and decision was made to keep the patient nothing by mouth for cardiac cath in AM Past Med Surg Social Fam HX - Past Medical History Medical history: coronary artery disease, diabetes, hyperlipidemia, hypertension, migraine, myocardial infarction, other Additional medical history: PCOS. pituitary adenoma. ulcer of left foot Psychiatric history: anxiety, depression - Past Surgical History Surgical History: cholecystectomy Additional surgical history: cath no stents. stent placement at [facility] 1 stent. right elbow surgery. stents [place] 3 stents - Social History Smoking Status: Current every day smoker Packs per day: 1/2 Smokeless Tobacco Status: No Alcohol use: none Drug use: none - Family History Mother Adopted: No Family Member Ethnicity: Non- Living Status: Still Living Hx Family Cardiac Disorders: Yes (HTN) Hx Family Respiratory Disorders: No Hx Family Cancer: No Hx Family GI Disorders: No Hx Family Endocrine Disorder: Yes (DM) Hx Family Neuromuscular Disorders: No Hx Family Neurologic Disorders: No Hx Family HEENT Disorders: No Hx Family Autoimmune Disorders: No Maternal Grandmother Hx Family Cardiac Disorders: Yes (CHF, HTN) Hx Family Endocrine Disorder: Yes (DM) Internal Medicine - H&P: Meds Atorvastatin [Lipitor] 40 mg PO HS 01/10/17 [History] Carvedilol [Coreg] 25 mg PO BID 01/10/17 [History] Clopidogrel [Plavix] 75 mg PO QAM 01/10/17 [History] Nitroglycerin [Nitrostat] 0.4 mg SL Q5M PRN 01/10/17 [History] Amitriptyline [Elavil] 25 mg PO HS 02/09/18 [History] Citalopram [CeleXA] 40 mg PO QPM 02/09/18 [History] Insulin NPH Hum/Reg Insulin Hm [Novolin 70-30 100 Unit/ml Vial] 30 unit SQ BID 02/09/18 [History] Lisinopril [Zestril] 10 mg PO QAM 02/09/18 [History] Dulaglutide [Trulicity] 0.75 mg SQ SA 01/14/19 [History] Aspirin [Adult Aspirin] 81 mg PO QPM 04/12/19 [History] Acetaminophen/Diphenhydramine [Acetaminophen Pm Caplet] 1 tab PO HS PRN 04/13/19 [History] Isosorbide MONOnitrate (24 HR) [Imdur] 60 mg PO DAILY 05/24/19 [History] Allergy/AdvReac Type Severity Reaction Status Date / Time hydrocodone [From Vicodin] Allergy Itching Verified 05/24/19 09:13 Sulfa (Sulfonamide Allergy Hives Verified 05/24/19 09:13 Antibiotics) metformin AdvReac Diarrhea Verified 05/24/19 09:13 All Systems PM: A 10-system review of systems was performed and is negative for pertinent findings except as documented above in the HPI. - Constitutional Vitals: Temp Pulse Resp BP Pulse Ox 97.6 F 62 16 105/61 92 05/24/19 13:13 05/24/19 13:13 05/24/19 13:13 05/24/19 13:13 05/24/19 13:13 - Head Head exam: Present: atraumatic, normocephalic - Eye Eye exam: Present: PERRL, conjuntiva pink, sclera anicteric Pupils: Present: PERRL - Neck Neck exam general surgery: Present: supple, trachea midline. Absent: lymphadenopathy - Respiratory Respiratory exam: Present: CTAB. Absent: accessory muscle use, rales, rhonchi, wheezes - Cardiovascular Cardiovascular exam: Present: RRR, +S1, +S2. Absent: diastolic murmur, gallop, rubs, systolic murmur - GI/Abdominal GI/Abdominal exam: Present: normal bowel sounds, soft, no peritoneal signs. Absent: distended, tenderness - Extremities Exam Extremities exam: Present: warm, radial pulses palpable and symmetrical. Absent: calf tenderness, cyanotic, pedal edema - Neurological Exam Neurological exam: Present: CN II-XII intact, oriented X3, no focal deficits. Absent: pronater drift, facial droop, speech deficit - Skin Skin exam: Present: dry, intact Internal Med - H&P Results - Labs CBC & Chem 7: 05/25/19 06:00 05/25/19 06:00 Labs: Short CBC 05/24/19 Range/Units 09:13 WBC 6.8 (4.3-11.1) K/mcL Hgb 14.4 (11.5-15.4) g/dL Hct 44.0 (35.3-44.9) % Plt Count 239 (140-400) K/mcL Neutrophils # 4.0 (1.6-8.9) K/mcL BMP 05/24/19 09:13 Sodium 135 L Potassium 4.3 Chloride 105 Carbon Dioxide 25 BUN 10 Creatinine 0.61 Glucose 163 H Calcium 8.8 Cardiac Enzymes 05/24/19 Range/Units 09:13 Troponin I < 0.03 (< 0.04) ng/mL - Impressions ITS Impressions Chest X-Ray 05/24/19 08:57 IMPRESSION: No acute cardiopulmonary process identified. 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 transplanted heart: [place] heart Associated angina: with stable angina Qualified Code(s): I25.118 - Atherosclerotic heart disease of [place] coronary artery with other forms of angina pectoris (5) Dyslipidemia Current Visit: No Status: Chronic (6) DVT prophylaxis Current Visit: No Status: Acute (7) Hyperlipidemia Current Visit: No Status: Chronic Qualifiers: Hyperlipidemia type: unspecified Qualified Code(s): E78.5 - Hyperlipidemia, unspecified (8) Tobacco use Current Visit: No Status: Chronic (9) Morbid obesity with BMI of 40.0-44.9, adult Current Visit: No Status: Chronic - Time Spent With Patient Total time spent is greater than 50% in coordination of care (as documented) at patient's floor/unit and/or counseling patient:
[2019-05-24] MEDS ORDERED: Ondansetron 4 MG/2 ML VIAL IVP PRN (15:06)
[2019-05-24] MEDS ORDERED: Naloxone 0.4 MG/ML INJ IVP PRN (15:06)
--- NOTE | 2019-05-24 16:51 | Electrocardiograph Report ---
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
[2019-05-24] MEDS: Ranolazine 500 MG TAB.ER.12H PO SCH (20:13)
[2019-05-25 02:14] LABS: Bilirubin,Urine Negative (Negative); Blood,Urine Large (Negative); Clarity,Urine Clear (Clear); Color,Urine Yellow (Yellow); Glucose,Urine (UA) Normal (Normal); Ketones,Urine Negative (Negative); Leukocyte Esterase,Urine Negative (Negative); Nitrite,Urine Negative (Negative); Protein,Urine Negative (Neg-Trace); Specific Gravity,Urine 1.026 (1.010-1.025); Urobilinogen,Urine Normal (Normal)
[2019-05-25 02:17] LABS: Bacteria,Urine Moderate per hpf (None-Few); Hyaline Casts,Urine None Seen per lpf (None-Few); Squamous Epithelial Cell,Urine Many per lpf (None-Few); WBC,Urine 0-3 per hpf (0-3)
[2019-05-25] MEDS ORDERED: *HR* Heparin 5,000 UNIT/ML VIAL SQ SCH (06:00)
[2019-05-25 06:18] LABS: Basophils # 0.1 K/mcL (0.0-0.2); Basophils % 0.7 %; Eosinophils # 0.2 K/mcL (0.0-0.6); Hematocrit 41.7 % (35.3-44.9); Hemoglobin 13.7 g/dL (11.5-15.4); Immature Granulocytes % 0.4 % (0-4); Lymphocytes # 2.4 K/mcL (0.6-4.6); Lymphocytes % 32.1 %; Mean Corpuscular HGB Conc 32.9 g/dL (31.6-35.5); Mean Corpuscular Volume 85.1 fL (83.0-100.0); Mean Platelet Volume 9.6 fL (9.4-12.4); Monocytes # 0.7 K/mcL (0.0-1.3); Platelet Count 226 K/mcL (140-400); Red Cell Distribution Width 13.7 % (11.5-14.5); Segmented Neutrophils % 54.8 %; White Blood Count 7.3 K/mcL (4.3-11.1)
[2019-05-25 06:26] LABS: Prothrombin Time 10.9 Seconds (9.4-12.1)
[2019-05-25 06:29] LABS: Activated Partial Thrombo Time 30.7 Seconds (26.0-36.0)
[2019-05-25 06:41] LABS: Alanine Aminotransferase 8 Units/L (7-52); Albumin 3.3 g/dL (3.5-5.7); Albumin/Globulin Ratio 1.3 (1.1-2.2); Alkaline Phosphatase 82 Units/L (34-104); Aspartate Amino Transferase 9 Units/L (13-39); BUN/Creatinine Ratio 21 (6-26); Bilirubin,Total 0.3 mg/dL (0.3-1.0); Blood Urea Nitrogen 14 mg/dL (6-20); Calcium 8.8 mg/dL (8.6-10.3); Carbon Dioxide 25 mEq/L (23-29); Chloride 103 mEq/L (98-107); Cholesterol 169 mg/dL (< 200); Globulin 2.5 g/dL (2.4-3.5); Glucose 140 mg/dL (70-105); HDL Cholesterol 28 mg/dL (40-59); LDL Cholesterol,Calculated 88 mg/dL (0-99); Osmolality,Calculated 283 (280-300); Phosphorous 3.6 mg/dL (2.7-4.5); Potassium 4.2 mEq/L (3.5-5.1); Sodium 135 mEq/L (136-145); Total Protein 5.8 g/dL (6.4-8.9); Triglycerides 264 mg/dL (< 150); eGFR For African Americans > 60 (> 60); eGFR For Non-African Americans > 60 (> 60)
[2019-05-25 06:58] VITALS: BP 142/87
[2019-05-25] MEDS ORDERED: Nitroglycerin 0.4 MG TAB.SUBL SL PRN (07:33)
[2019-05-25] MEDS ORDERED: Dextrose Gel 15 GM/37.5 ML TUBE PO PRN ×2 (07:35)
[2019-05-25] MEDS ORDERED: D5% in Water 1,000 ML IVC PRN (07:35)
[2019-05-25] MEDS ORDERED: *HR* Dextrose 50 % in Water (Syg) 50 ML SYRINGE IVP PRN (07:35)
[2019-05-25] MEDS ORDERED: Insulin NPH/REG 70/30 100 UNIT/ML (x5UNIT) SQ SCH (08:15)
[2019-05-25] MEDS ORDERED: Aspirin Enteric Coated 81 MG Tablet PO SCH (09:00)
[2019-05-25] MEDS ORDERED: Isosorbide MONOnitrate (24 HR) 30 MG TAB.ER.24H PO SCH (09:00)
[2019-05-25] MEDS: Ranolazine 500 MG TAB.ER.12H PO SCH (10:12)
--- NOTE | 2019-05-25 10:58 | Discharge Summary ---
- NOTES TO OUTPATIENT PROVIDER Notes to Outpatient Provider: f/u with cardiology as scheduled. f/u with PCP within a week. Date of Encounter: 05/25/19 Time of Encounter: 10:56 - Discharge Diagnosis (1) Chest pain Priority: Primary Status: Acute Qualifiers: Chest pain type: unspecified Qualified Code(s): R07.9 - Chest pain, unspecified (2) Diabetes mellitus Priority: Secondary Status: Chronic Qualifiers: Diabetes mellitus type: type 2 Diabetes mellitus usp insulin use: with usp use Diabetes mellitus complication status: with other specified complication Qualified Code(s): E11.69 - Type 2 diabetes mellitus with other specified complication; Z79.4 - group home (current) use of insulin (3) Hypertension Priority: Secondary Status: Chronic Qualifiers: Hypertension type: essential hypertension Qualified Code(s): I10 - Essential (primary) hypertension (4) Coronary artery disease Priority: Secondary Status: Chronic Qualifiers: Coronary Disease-Associated Artery/Lesion type: [place] artery [place] vs. transplanted heart: [place] heart Associated angina: with stable angina Qualified Code(s): I25.118 - Atherosclerotic heart disease of [place] coronary artery with other forms of angina pectoris (5) Dyslipidemia Priority: Secondary Status: Chronic (6) DVT prophylaxis Priority: Primary Status: Acute (7) Tobacco use Priority: Secondary Status: Chronic (8) Morbid obesity with BMI of 40.0-44.9, adult Priority: Secondary Status: Chronic Hospital course: Ms. Keenan is a 43 year old female with past medical history of coronary artery disease, diabetes, hyperlipidemia, hypertension, migraine, myocardial infarction, status post cardiac catheterization as well as stent placement 6 weeks ago who presented to the emergency room with acute onset of chest pain located in the mid chest radiating to her left shoulder and left arm, the patient took aspirin as well as nitroglycerin with some improvement. Further workup was ordered. Serial troponin was negative, EKG has no acute ST-T change, telemetry monitoring has no ischemia or infarct. Cardiology was consulted, patient was started on Ranexa, her chest pain has resolved. Cardiology recommended continuing medical management and outpatient follow-up. Patient is discharged home today, smoking cessation was discussed with patient again and a Chantix was prescribed. Prescription for Ranexa was also sent to the pharmacy. She will follow up with cardiology as well as PCP as scheduled. Discharge discussed with: patient Time spent discussing smoking cessation with patient: more than 10 minutes - Time Spent with Patient Total time spent providing and/or coordinating discharge services: Time spent: Greater than 30 minutes - Discharge Medications Prescriptions: New Varenicline [Chantix] 0.5 mg PO BID #60 tablet Ranolazine [Ranexa] 500 mg PO BID #60 tab.er.12h Continued Carvedilol [Coreg] 25 mg PO BID Clopidogrel [Plavix] 75 mg PO QAM Nitroglycerin [Nitrostat] 0.4 mg SL Q5M PRN PRN Reason: Chest Pain Atorvastatin [Lipitor] 40 mg PO HS Citalopram [CeleXA] 40 mg PO QPM Amitriptyline [Elavil] 25 mg PO HS Insulin NPH Hum/Reg Insulin Hm [Novolin 70-30 100 Unit/ml Vial] 30 unit SQ BID Lisinopril [Zestril] 10 mg PO QAM Dulaglutide [Trulicity] 0.75 mg SQ SA Aspirin [Adult Aspirin] 81 mg PO QPM Acetaminophen/Diphenhydramine [Acetaminophen Pm Caplet] 1 tab PO HS PRN PRN Reason: Sleep Isosorbide MONOnitrate (24 HR) [Imdur] 60 mg PO DAILY Home Medications: Atorvastatin [Lipitor] 40 mg PO HS 01/10/17 [History] Carvedilol [Coreg] 25 mg PO BID 01/10/17 [History] Clopidogrel [Plavix] 75 mg PO QAM 01/10/17 [History] Nitroglycerin [Nitrostat] 0.4 mg SL Q5M PRN 01/10/17 [History] Amitriptyline [Elavil] 25 mg PO HS 02/09/18 [History] Citalopram [CeleXA] 40 mg PO QPM 02/09/18 [History] Insulin NPH Hum/Reg Insulin Hm [Novolin 70-30 100 Unit/ml Vial] 30 unit SQ BID 02/09/18 [History] Lisinopril [Zestril] 10 mg PO QAM 02/09/18 [History] Dulaglutide [Trulicity] 0.75 mg SQ SA 01/14/19 [History] Aspirin [Adult Aspirin] 81 mg PO QPM 04/12/19 [History] Acetaminophen/Diphenhydramine [Acetaminophen Pm Caplet] 1 tab PO HS PRN 04/13/19 [History] Isosorbide MONOnitrate (24 HR) [Imdur] 60 mg PO DAILY 05/24/19 [History] Ranolazine [Ranexa] 500 mg PO BID #60 tab.er.12h 05/25/19 [Rx] Varenicline [Chantix] 0.5 mg PO BID #60 tablet 05/25/19 [Rx] Allergies/Adverse Reactions: Allergy/AdvReac Type Severity Reaction Status Date / Time hydrocodone [From Vicodin] Allergy Itching Verified 05/24/19 09:13 Sulfa (Sulfonamide Allergy Hives Verified 05/24/19 09:13 Antibiotics) metformin AdvReac Diarrhea Verified 05/24/19 09:13 Date of admission: 05/24/19 11:15 Primary care physician: Heri Harrison MD Consults: 05/24/19 11:25 Consult to Cardiology [CONS] Stat Comment: Contacted Dr. Naranjo from cardiology who has agree Consulting Provider: Cardiology [place] Reason for Consult: chest pain Call Completed: Yes Anticipated date of discharge: 05/25/19 - Constitutional Vitals: Temp Pulse Resp BP Pulse Ox 97.9 F 63 18 142/87 93 05/25/19 06:56 05/25/19 06:56 05/25/19 06:56 05/25/19 06:56 05/25/19 06:56 General appearance: Present: A&O X 3 Exam: PHYSICAL EXAMINATION: GENERAL APPEARANCE: The patient is alert, oriented and in no acute distress. HEENT: Head is normocephalic. The sinuses are nontender. Pupils are equal and reactive. The nares are patent. Oropharynx clear without lesions. NECK: Supple without lymphadenopathy. HEART: Regular rate and rhythm. LUNGS: No crackles or wheezes are heard. ABDOMEN: Soft, nontender, nondistended with good bowel sounds heard. Inguinal area is normal. EXTREMITIES: Without cyanosis, clubbing or edema. NEUROLOGICAL: Gross nonfocal. SKIN: Warm and dry without any rash. - Patient Status Disposition: Home, Self-Care Condition: Fair Functional capacity at discharge: independent ambulation Overall status at discharge: patient is back to baseline - Discharge Instructions Follow Up With: Heri Harrison MD [Primary Care Provider] - - Diet and Activity Activity: increase activity as tolerated Diet: diabetic diet, low fat, low cholesterol, low salt diet
--- NOTE | 2019-05-25 11:07 | Cardiology Progress Note ---
Date of Encounter: 05/25/19 Time of Encounter: 10:00 Assessment and Plan (1) Chest pain Current Visit: Yes Status: Acute Per cardiology: -Admitted with typical chest pain symptoms. -Denies current chest pain. Patient has been chest pain free since admission and has been up walking. -Troponin negative x4. -No acute ECG changes. -Recent [facility], see below. -TTE 05/20/19 with LVEF 60%, RV mildly dilated with normal function, no segmental wall motion abnormalities noted. -On asa, statin, BB, plavix, imdur, ranexa was added this admission. -No recurrence of chest pain with increased anti-anginal therapy. Troponins negative x4. -No further cardiac evaluation needed at this time. -Cardiology will sign off, will arrange close outpatient follow up. Qualifiers: Chest pain type: unspecified (2) Coronary artery disease Current Visit: No Status: Chronic Per cardiology: -Known CAD s/p C 04/12/19 with 60% ISR mid LAD with PTCA, 70% distal circ with IVETTE, 95% prox RCA, 100% mid RCA [employer]. -ON asa, plavix, statin, BB, imdur. -Continue home medications. -Continue dual anti-platelet therapy uninterrupted for at least one year, states understanding. -See chest pain as above. Qualifiers: Coronary Disease-Associated Artery/Lesion type: [place] artery [place] vs. transplanted heart: [place] heart Associated angina: with stable angina Qualified Code(s): I25.118 - Atherosclerotic heart disease of [place] coronary artery with other forms of angina pectoris Discussion w patient/family: The assessment and plan as outlined above was discussed with the patient and/or family members who expressed understanding and agreement. All questions were answered. Thank you for involving us in the care of your patient. Please call with any questions. Discussed and reviewed with . Subjective Principal diagnosis: chest pain Interval history: Patient admitted for chest pain yesterday. Patient was started on ranexa. Patient is currently chest pain free and is anxious for discharge. Objective Vital Signs Temperature 98.8 F 05/24/19 09:05 Pulse Rate 64 05/24/19 09:05 Respiratory Rate 14 05/24/19 09:05 Blood Pressure 125/82 05/24/19 09:05 O2 Sat by Pulse Oximetry 98 05/24/19 09:05 Temperature 97.9 F 05/25/19 06:56 Pulse Rate 63 05/25/19 06:56 Respiratory Rate 18 05/25/19 06:56 Blood Pressure 142/87 05/25/19 06:56 O2 Sat by Pulse Oximetry 93 05/25/19 06:56 Oxygen Delivery Oxygen Delivery Room Air General: Conversant, No Apparent Distress HEENT: Atraumatic, Normocephaly, Mucus Membranes Moist Neck: No JVD, Normal carotid pulses Cardiac: Reg Rate and Rhythm, Normal S1 and S2, No Murmur Lungs: Normal Breath Sounds, No Wheeze, Rales, Rhonchi Neuro: Alert and responsive, No focal deficits noted Abdomen: Soft, Non-Tender Skin: No rashes noted on visualized skin Musculoskeletal: No Chest Wall Tenderness Extremities: No Clubbing, No Cyanosis, No Edema, Normal Pulses Results 05/25/19 06:00 05/25/19 06:00 Lab Results Active Medications Amitriptyline HCl (Elavil) 25 mg PO HS [facility] Stop: 11/24/19 21:01 Aspirin (Aspirin Ec) 81 mg PO DAILY [facility] Stop: 11/24/19 09:01 Last Admin: 05/25/19 10:11 Dose: 81 mg Documented by: Carvedilol (Coreg) 25 mg PO BIDWM [facility]; Protocol Stop: 11/24/19 08:16 Citalopram Hydrobromide (Celexa) 40 mg PO QPM [facility] Stop: 11/24/19 18:01 Clopidogrel Bisulfate (Plavix) 75 mg PO DAILY [facility] Stop: 11/24/19 09:01 Last Admin: 05/25/19 10:11 Dose: 75 mg Documented by: Dextrose/Water (Dextrose 50% (Syg)) 25 ml IVP AD PRN PRN Reason: Hypoglycemia Stop: 11/24/19 07:36 Glucagon (Glucagen) 1 mg IM ONCE PRN PRN Reason: Hypoglycemia Stop: 11/24/19 07:36 Glucose (Gluctose) 15 gm PO ONCE PRN PRN Reason: Hypoglycemia Stop: 11/24/19 07:36 Glucose (Gluctose) 30 gm PO ONCE PRN PRN Reason: Hypoglycemia Stop: 11/24/19 07:36 Heparin Sodium (Porcine) (Heparin) 5,000 unit SQ Q12HCO [facility] Stop: 11/24/19 06:01 Last Admin: 05/25/19 05:19 Dose: 5,000 unit Documented by: Dextrose (Dextrose 5%) 1,000 mls @ 100 mls/hr IVC .Q10H PRN PRN Reason: HYPOGLYCEMIA Stop: 11/24/19 07:36 Insulin Human Lispro (Humalog) 0 units SQ HS [facility]; Protocol Stop: 11/24/19 21:01 Insulin Human Lispro (Humalog) 0 units SQ TIDAC [facility]; Protocol Stop: 11/24/19 11:31 Insulin Isophane/Insulin Regular (Humulin 70/30 Vial) 30 unit SQ BIDWM [facility] Stop: 11/24/19 08:16 Isosorbide Mononitrate (Imdur) 60 mg PO DAILY [facility] Stop: 11/24/19 09:01 Last Admin: 05/25/19 10:12 Dose: 60 mg Documented by: Lisinopril (Zestril) 10 mg PO QAM [facility]; Protocol Stop: 11/24/19 09:01 Last Admin: 05/25/19 10:11 Dose: 10 mg Documented by: Naloxone HCl (Narcan) 0.4 mg IVP Q2MPRN PRN PRN Reason: SEE COMMENTS Stop: 11/23/19 15:07 Nitroglycerin (Nitroglycerin) 0.4 mg SL Q5M PRN PRN Reason: Chest Pain Stop: 11/24/19 07:34 Ondansetron HCl (Zofran) 4 mg IVP Q8HR PRN PRN Reason: Nausea And Vomiting Stop: 11/23/19 15:07 Ranolazine (Ranexa) 500 mg PO BID [facility] Stop: 11/23/19 21:01 Last Admin: 05/25/19 10:12 Dose: 500 mg Documented by: Varenicline (Chantix) 0.5 mg PO BID [facility] Stop: 11/23/19 21:01 Last Admin: 05/24/19 20:13 Dose: 0.5 mg Documented by: Laboratory Tests 05/24/19 05/24/19 05/24/19 09:13 15:31 20:58 Troponin I < 0.03 < 0.03 < 0.03 05/25/19 06:00 Troponin I < 0.03 - Imaging and Cardiology Chest Xray: report reviewed Stress Test: report reviewed Echo: report reviewed Cardiac cath: report reviewed - EKG Interpretation EKG results cardiology: other (Telemetry reviewed with average HR previous 12 hours noted to be 67, SR. PVCs, PACs noted.) Consult Discharge Plan - Plan Referrals: Heri Harrison MD [Primary Care Provider] - Prescriptions: Varenicline [Chantix] 0.5 mg PO BID #60 tablet Ranolazine [Ranexa] 500 mg PO BID #60 tab.er.12h
[2019-05-25] MEDS ORDERED: Insulin LISPRO 300 UNITS/3 ML VIAL SQ SCH ×2 (11:30→21:00)
== END 2019-05-25 11:45 | disposition home or self-care (01) ==
LOC: 3BNU 08:53 → EMEROOARM 08:53 → 3BNU 12:15
PROVIDERS: ADMIT Internal Medicine Nephrology; ATTEND Internal Medicine Nephrology